=== PATIENT | female | born 1955 | race Caucasian/White ===

== ENCOUNTER 2016-09-09 23:17 | Inpatient (IN) ==
[2016-09-09] MEDS: INSULIN REGULAR DRIP 100 ML IV SCH (23:25)
[2016-09-09] MEDS ORDERED: METOCLOPRAMIDE 10 MG/2 ML VIAL IV STA (23:34)
[2016-09-09] MEDS ORDERED: SODIUM CHLORIDE 0.9% 2,000 ML IV STA (23:34)
[2016-09-09] MEDS ORDERED: LEVOFLOXACIN INJ 750 MG in PREMIX 1 EACH IV STA (23:34)
[2016-09-09] MEDS ORDERED: ONDANSETRON 4 MG/2 ML VIAL IV STA (23:34)
[2016-09-09] MEDS ORDERED: INSULIN REGULAR 100 UNIT/ML SUBCUT STA (23:36)
[2016-09-09] MEDS ORDERED: INSULIN REGULAR 100 UNIT/ML IV STA (23:36)
[2016-09-09] MEDS ORDERED: PANTOPRAZOLE 40 MG VIAL IV STA (23:36)
--- NOTE | 2016-09-09 23:40 | Emergency Department Note ---
Arrival - Arrival Chief Complaint: Nausea/Vomiting/Diarrhea Stated Complaint: n/v ED Nursing Triage Note: pt went to clinic yesterday for n/v and sent home. went back today and was sent to er and found glucose to be 780 and pylonephritis. gave rocephin and pt had reaction with rash and itching. insulin infusion going and sugar still 730 right before transfer to here. Mode of Arrival: Stretcher Limitations: No Limitations Source: Patient Time Seen by Provider: 09/09/16 23:34 - History of Present Illness HPI Narrative: This 61-year-old white female presents on transfer from [facility] with an elevated blood sugar and cystitis. This patient reports a history of 3 days of nausea and vomiting with inability to keep anything down. During the same time frame she has had problems with cystitis for which she was given Cipro but has been unable to keep it down because of nausea and vomiting. She presented to [facility] earlier with these symptoms where she was found to have an active bladder infection as well as a skyrocketing blood sugar over 700. The patient denies chills, fever, cough, chest pain, or diarrhea. Currently she appears stable and in no acute medical distress. Onset (ago): day(s) (it should presents 3 days post-onset of symptoms) Consistency: constant Date of Last Menstrual Period: pm Allergies/Adverse Reactions: Allergies Allergy/AdvReac Type Severity Reaction Status Date / Time ceftriaxone [From Rocephin] Allergy RASH Verified 09/09/16 23:23 Hydromorphone [From Dilaudid] AdvReac Severe Vomiting Verified 01/31/15 16:30 morphine AdvReac Severe Vomiting Verified 01/31/15 16:30 Home Medications: Home Medications Medication Instructions Recorded Confirmed Type Atorvastatin [Lipitor] 40 mg PO DAILY 01/31/15 09/10/16 History Celecoxib [Celebrex] 200 mg PO DAILY 01/31/15 09/10/16 History Duloxetine HCl [Duloxetine] 30 mg PO DAILY 01/31/15 09/10/16 History Esomeprazole Magnesium [Nexium] 40 mg PO DAILY 01/31/15 09/10/16 History Flecainide Acetate 100 mg PO BID 01/31/15 09/10/16 History Furosemide Tab [Lasix Tab] 80 mg PO BID DIURETIC 01/31/15 09/10/16 History Gabapentin Cap/Tab [Neurontin 100 mg PO BID 01/31/15 09/10/16 History Cap/Tab] Metoprolol Succinate 100 mg PO BID 01/31/15 09/10/16 History Montelukast Sodium 10 mg PO BEDTIME 01/31/15 09/10/16 History Perindopril Erbumine [Aceon] 4 mg PO DAILY 01/31/15 09/10/16 History Warfarin Sodium 4 mg PO DIRECTED 01/31/15 09/10/16 History Warfarin [Coumadin] 5 mg PO QOTHER DAY 01/31/15 09/10/16 History Review of System - Review of System 12 point system: reviewed and no additional remarkable complaints except as stated - Review of System Constitutional: Present: as per HPI Respiratory: Present: as per HPI Cardiovascular: Present: as per HPI Endocrine: Present: as per HPI Medical,Surgical,& Family Hx - Medical History Cardio: History of: Cardiovascular Problems (A FIB) Endocrine: History of: Diabetes Mellitus (IDDM) Rheumatology: History of;: Gout - Social History Smoking Status: Unknown if ever smoked Frequency of Alcohol Use: None Type of Drug Use: None Exam Physical Examination: GENERAL: Obese white female iin no acute distress. HEENT: Normocephalic. No trauma. Moist mucous membranes. EOMI. PERRLA. ENT clear NECK: Supple. No adenopathy. CARDIAC: Regular. No murmurs. Heart rate 97 CHEST: Clear to auscultation. No respiratory distress. O2 sat 94% ABDOMEN: Soft. Nontender. Hyperactive bowel sounds. EXTREMITIES: No trauma. Normal ROM. No pedal edema. SKIN: No diaphoresis. No rash. NEURO: Alert. Oriented 3. Motor, sensory, vibratory intact. No focal deficits. Vital Signs: Vital Signs Temperature 97.6 F 09/09/16 23:17 Pulse Rate 97 H 09/09/16 23:17 Respiratory Rate 19 09/09/16 23:17 Blood Pressure 101/55 09/09/16 23:17 O2 Sat by Pulse Oximetry 94 L 09/09/16 23:17 Course - Reevaluation(s) Reevaluation #1: Patient was expectant of admission. - Consultations Consultation #1: Discussed with Dr. Ceja, hospitalist, who will admit for further evaluation treatment. Results - Labs CBC & BMP: 09/09/16 23:34 02/02/17 23:34 Labs: Lab per [facility] reveals a glucose of 784, temp 0.35 with a PO2 of 59, white count of 11,300, hematocrit 43.5, sodium 131, potassium 5.1, CO2 25, creatinine 1.6, BUN 24 and lipase 99 I have reviewed the laboratory from here and noted the persistently elevated glucose as well as a bump in troponin. - Impressions EKG: Sinus rhythm at 86 with normal [place] interval and QRS duration. Peak T's noted. No acute injury pattern noted. - Diagnostic Findings Procedure: Abdominal x-ray: image reviewed by me, report reviewed by me (her [facility] nonspecific gas and feces pattern) Disposition Clinical Impression: hyperglycemia, cystitis, abnormal cardiac enzymes Case discussed with: patient, patient's family Disposition: Still a Patient Condition: Guarded Time of Disposition: 00:26
[2016-09-09] MEDS ORDERED: ONDANSETRON 4 MG/2 ML VIAL ONE (23:47)
[2016-09-09] MEDS ORDERED: PANTOPRAZOLE 40 MG VIAL IV ONE (23:47)
[2016-09-09] MEDS ORDERED: METOCLOPRAMIDE 10 MG/2 ML VIAL ONE (23:47)
[2016-09-09] MEDS ORDERED: INSULIN REGULAR 100 UNIT/ML ONE (23:49)
[2016-09-09] MEDS ORDERED: LEVOFLOXACIN INJ 150 ML IV ONE (23:49)
[2016-09-09 23:50] LABS: Basophils % 0.4 % (0.0-0.8); Eosinophils % 0.1 % (0.00-10.9); Hematocrit 39.4 VOL% (35.7-47.0); Immature Granulocytes % 0.4 %; Immature Granulocytes Absolute 0.04 #; Lymphocytes # 0.6 10*3/uL (1.4-4.0); Lymphocytes % 5.5 % (21.3-54.2); Mean Corpuscular Hemoglobin 30 PG (27-34); Mean Corpuscular Volume 91.2 FL (87-102); Mean Platelet Volume 11.5 FL (9.6-12.0); Monocytes # 0.8 10*3/uL (0.11-0.8); Monocytes % 7.4 % (1.7-12.7); Neutrophils # 9.5 10*3/uL (1.4-7.4); Neutrophils % 86.2 % (38.7-73.9); Platelet Count 208 T/CUMM (130-400); Red Blood Count 4.32 MC/CUMM (3.8-5.5); Red Cell Distribution Width 13.2 % (9.3-17.3)
[2016-09-10 00:11] LABS: Alanine Aminotransferase 24 U/L (13-56); Albumin 3.2 G/DL (3.4-5.0); Alkaline Phosphatase 104 U/L (45-117); Amylase 20 U/L (25-115); Aspartate Amino Transferase 27 U/L (0-37); Blood Urea Nitrogen 27 MG/DL (7-18); Calcium 8.1 MG/DL (8.5-10.1); Osmolality,Calculated 306.4 MOS/KG (273-304); Potassium 3.9 MMOL/L (3.5-5.1); Sodium 140 MMOL/L (136-145); Total Protein 5.9 G/DL (6.4-8.3)
[2016-09-10 00:12] LABS: Troponin I Only 0.439 NG/ML (0.00-0.045)
[2016-09-10 00:13] LABS: Glucose 519 MG/DL (74-106)
[2016-09-10] MEDS ORDERED: INSULIN REGULAR DRIP 100 ML IV ONE ×2 (00:34→00:48)
--- NOTE | 2016-09-10 01:19 | Hospitalist History & Physical ---
Assessment and Plan (1) Gastroenteritis Status: Acute Current Visit: Yes (2) Cystitis Status: Acute Current Visit: Yes (3) History of atrial fibrillation Status: Acute Current Visit: Yes (4) History of gout Status: Acute Assessment and plan: I plan for this patient currently #1 admit the patient for an insulin infusion #2 general 100 generous hydration #3 serial BMPs to ensure that she doesn't go into DKA #4 IV antibiotics #5 home meds as appropriate plan #6 repeat cardiac enzymes 6 hours #7 hold patient's insulin pump for now Current Visit: Yes (5) Hyperglycemia Status: Acute Current Visit: Yes History of Present Illness Chief complaint: Nausea vomiting diarrhea History of present illness: Ms. Mann is a 61 year old female with past medical history significant for diabetes atrial fibrillation and gout is been d dealing with nausea vomiting diarrhea times several days. Patient is a patient of Dr. Steele. Apparently her symptoms started Tuesday. They've been waxing and waning. At one point Dr. barbour and put her in the hospital when her sodium was 122. She did not want to go. She's been dealing with issues of cystitis she was given's Cipro but unable to keep anything down because of the nausea and vomiting. Tonight she presented with krishan with her symptoms returning again and her sugar was over 700. She was given some IV Rocephin at the outside facility and she had allergic reaction to it. She's currently on insulin infusion and I was consulted to admit her. Home Medications Medication Instructions Recorded Confirmed Type Atorvastatin [Lipitor] 40 mg PO DAILY 01/31/15 09/10/16 History Celecoxib [Celebrex] 200 mg PO DAILY 01/31/15 09/10/16 History Duloxetine HCl [Duloxetine] 30 mg PO DAILY 01/31/15 09/10/16 History Esomeprazole Magnesium [Nexium] 40 mg PO DAILY 01/31/15 09/10/16 History Flecainide Acetate 100 mg PO BID 01/31/15 09/10/16 History Furosemide Tab [Lasix Tab] 80 mg PO BID DIURETIC 01/31/15 09/10/16 History Gabapentin Cap/Tab [Neurontin 100 mg PO BID 01/31/15 09/10/16 History Cap/Tab] Metoprolol Succinate 100 mg PO BID 01/31/15 09/10/16 History Montelukast Sodium 10 mg PO BEDTIME 01/31/15 09/10/16 History Perindopril Erbumine [Aceon] 4 mg PO DAILY 01/31/15 09/10/16 History Warfarin Sodium 4 mg PO DIRECTED 01/31/15 09/10/16 History Warfarin [Coumadin] 5 mg PO QOTHER DAY 01/31/15 09/10/16 History Allergies Allergy/AdvReac Type Severity Reaction Status Date / Time ceftriaxone [From Rocephin] Allergy RASH Verified 09/09/16 23:23 Hydromorphone [From Dilaudid] AdvReac Severe Vomiting Verified 01/31/15 16:30 morphine AdvReac Severe Vomiting Verified 01/31/15 16:30 Medical,Surgical,& Family Hx - Medical History Cardio: History of: Cardiovascular Problems (A FIB) Endocrine: History of: Diabetes Mellitus (IDDM) Rheumatology: History of;: Gout - Surgical History Abdominal Surgeries: Surgical HX of: Cholecystectomy Reproductive Surgeries: Surgical HX of;: Hysterectomy Orthopedic Surgeries: Surgical HX of;: Orthopedic Surgery - Family History Family History: Reports;: Family Cancer, Family Heart Disease - Social History Smoking Status: Unknown if ever smoked Frequency of Alcohol Use: None Type of Drug Use: None 12 point system: reviewed and no additional remarkable complaints except as stated Exam - Constitutional Vitals: Period Temp Pulse Resp BP Sys/Ruiz Pulse Ox Last 24 Hr 97.6 F 97 19 101/55 94 General appearance: morbidly obese - Head Head exam: Present: normal inspection - Eye Eye exam: Present: EOMI Pupils: Present: VERITO - ENT ENT exam: Present: normal exam - Neck Neck exam: Present: normal inspection - Cardiovascular Cardiovascular exam: Present: regular rate and rhythm - GI/Abdominal GI/Abdominal exam: Present: normal bowel sounds - Extremities Exam Extremities exam: Present: normal inspection - Back Exam Back exam: Present: normal inspection - Neurological Exam Neurological exam: Present: alert, oriented X3 - Psychiatric Psychiatric exam: Present: normal affect, normal mood - Skin Skin exam: Present: normal color Results - Labs CBC & BMP: 09/09/16 23:34 09/09/16 23:34
[2016-09-10] MEDS ORDERED: ALBUTEROL 2.5 MG/3 ML NEB RESP TX PRN (01:30)
[2016-09-10] MEDS: SODIUM CHLORIDE 0.9% 1,000 ML IV SCH ×5 (02:54→20:00)
[2016-09-10 03:12] LABS: Apearance,Urine Slightly Hazy (Clear); Bacteria,Urine Occasional /HPF (Few); Bilirubin,Urine Negative (Negative); Blood, Urine Small mg/dL (Negative); Glucose,Urine (UA) >=500 mg/dL (Negative); Ketones,Urine 5 mg/dL (Negative); Mucus,Urine Occasional /LPF (Occasional); Nitrite,Urine Negative (Negative); Protein,Urine Negative; RBC,Urine 1 /HPF (0-4); Squamous Epithelial Cell,Urine Occasional /HPF (0-10); Urine Color Yellow (Yellow); Urine Specific Gravity 1.011 (1.001-1.035); Urine Urobilinogen < 2.0 EU/DL (0.2-1.0); WBC,Urine 27 /HPF (0-6)
[2016-09-10] MEDS: INSULIN REGULAR DRIP 100 ML IV SCH (04:30)
[2016-09-10] MEDS: ONDANSETRON 4 MG/2 ML VIAL IV PRN (04:54)
[2016-09-10 05:04] LABS: INR 2.8
[2016-09-10 05:05] LABS: PT Patient Result 32.1 SECS
[2016-09-10] MEDS: DEXTROSE 50% 25 GM/50 ML VIAL IV PRN (06:29)
[2016-09-10] MEDS ORDERED: DEXTROSE 50% 25 GM/50 ML VIAL IV ONE (06:32)
[2016-09-10 07:54] LABS: Calcium 7.6 MG/DL (8.5-10.1); Osmolality,Calculated 294.7 MOS/KG (273-304); Potassium 3.7 MMOL/L (3.5-5.1)
[2016-09-10] MEDS ORDERED: CELECOXIB 200 MG CAPSULE PO SCH (09:00)
[2016-09-10] MEDS ORDERED: ENOXAPARIN 40 MG/0.4 ML SYRINGE SUBCUT SCH (09:00)
[2016-09-10] MEDS: FLECAINIDE 100 MG TABLET PO SCH ×2 (09:47→20:53)
[2016-09-10] MEDS: FUROSEMIDE 80 MG TABLET PO SCH ×2 (09:48→16:58)
[2016-09-10] MEDS: DULoxetine 30 MG CAPSULE PO SCH (09:48)
[2016-09-10] MEDS: ATORVASTATIN 40 MG TABLET PO SCH (09:48)
[2016-09-10] MEDS: METOPROLOL SUCCINATE XL 100 MG TABLET PO SCH ×2 (09:48→20:54)
[2016-09-10] MEDS: GABAPENTIN 100 MG CAPSULE PO SCH ×2 (09:49→20:54)
--- NOTE | 2016-09-10 10:02 | EKG Report ---
Stationary ECG Study [facility] ER Test Date: 09/10/2016 12:00:17 AM Pat Name: MANOJ MANZANO Department: Room: 116 Gender: F Technical Specialist: : 1955 Requested by: Garry Dale Order Number: [id number] Reading MD: JEET ANDREW Intervals [place] Rate: 86 P: 101 AK: 201 QRS: 37 QRSD: 109 T: 36 QT: 404 QTc: 447 Interpretive Statements SINUS RHYTHM Electronically Signed On 09-10-16 17:56:09 [employer]AL SPRAY OPERATOR by JEET ANDREW [email or web address]
[2016-09-10] MEDS ORDERED: GLUCAGON 1 MG VIAL IM PRN (10:18)
[2016-09-10] MEDS ORDERED: INSULIN LISPRO 100 UNIT/ML SUBCUT SCH (11:30)
--- NOTE | 2016-09-10 12:38 | Hospitalist Progress Note ---
Assessment and Plan (1) Gastroenteritis Status: Acute Current Visit: Yes (2) Cystitis Status: Acute Current Visit: Yes (3) History of atrial fibrillation Status: Acute Current Visit: Yes (4) History of gout Status: Acute Assessment and plan: I plan for this patient currently #1 admit the patient for an insulin infusion #2 general 100 generous hydration #3 serial BMPs to ensure that she doesn't go into DKA #4 IV antibiotics #5 home meds as appropriate plan #6 repeat cardiac enzymes 6 hours #7 hold patient's insulin pump for now 09/10/16 and plan for this patient will be to transfer her upstairs continue with IV antibiotics and IV fluids. Accu-Cheks before meals and at bedtime and have the patient administer her own insulin through her pump. Her cardiac enzymes displayed a troponin of 1.35 but her CK was 75 Will draw another troponin to see which direction they're going she has no symptoms no signs of cardiac issues Current Visit: Yes (5) Hyperglycemia Status: Acute Current Visit: Yes Hospitalist: Subjective Interval history: Patient seems to be doing better. Her Accu-Cheks are in the 102 100 range. On insulin infusion has been stopped. Transfer her upstairs Exam - Constitutional Vitals: Period Temp Pulse Resp BP Sys/Ruiz Pulse Ox Last 24 Hr 97.6 F-99.4 F 72-97 12-29 89-123/41-75 91-98 General appearance: morbidly obese - Head Head exam: Present: normal inspection - Eye Eye exam: Present: EOMI Pupils: Present: VERITO - ENT ENT exam: Present: normal exam - Neck Neck exam: Present: normal inspection - Respiratory Respiratory exam: Present: clear to auscultation bilaterally - Cardiovascular Cardiovascular exam: Present: regular rate and rhythm - GI/Abdominal GI/Abdominal exam: Present: normal bowel sounds - Extremities Exam Extremities exam: Present: normal inspection - Back Exam Back exam: Present: normal inspection - Neurological Exam Neurological exam: Present: alert - Psychiatric Psychiatric exam: Present: normal affect Results - Labs CBC & BMP: 09/09/16 23:34 09/10/16 04:38
[2016-09-10] MEDS ORDERED: INSULIN LISPRO 100 UNIT/ML SUBCUT ONE (13:00)
[2016-09-10] MEDS: ACETAMINOPHEN 325 MG TABLET PO PRN (13:15)
[2016-09-10] MEDS: INSULIN REGULAR 100 UNIT/ML SUBCUT SCH ×2 (16:30→21:00)
[2016-09-10 16:33] LABS: Troponin I Only 0.982 NG/ML (0.00-0.045)
[2016-09-10] MEDS: LEVOFLOXACIN INJ 750 MG in PREMIX 1 EACH IV SCH (20:54)
[2016-09-10] MEDS: MONTELUKAST 10 MG TABLET PO SCH (20:54)
[2016-09-10] MEDS: PANTOPRAZOLE 40 MG VIAL IV SCH (21:34)
[2016-09-11 04:20] LABS: Calcium 7.9 MG/DL (8.5-10.1); Osmolality,Calculated 299.4 MOS/KG (273-304); Potassium 4.9 MMOL/L (3.5-5.1)
[2016-09-11 04:26] LABS: INR 3.5
[2016-09-11] MEDS: SODIUM CHLORIDE 0.9% 1,000 ML IV SCH ×3 (05:28→22:05)
[2016-09-11] MEDS: ATORVASTATIN 40 MG TABLET PO SCH (08:50)
[2016-09-11] MEDS: FUROSEMIDE 80 MG TABLET PO SCH ×2 (08:50→16:25)
[2016-09-11] MEDS: GABAPENTIN 100 MG CAPSULE PO SCH ×2 (08:50→20:56)
[2016-09-11] MEDS: INSULIN REGULAR 100 UNIT/ML SUBCUT SCH ×4 (08:50→21:50)
[2016-09-11] MEDS: METOPROLOL SUCCINATE XL 100 MG TABLET PO SCH ×2 (08:50→20:56)
[2016-09-11] MEDS: DULoxetine 30 MG CAPSULE PO SCH (08:50)
[2016-09-11] MEDS: FLECAINIDE 100 MG TABLET PO SCH ×2 (08:51→22:05)
[2016-09-11] MEDS ORDERED: PERINDOPRIL ERBUMINE 4 MG PO SCH (09:00)
[2016-09-11] MEDS: ONDANSETRON 4 MG/2 ML VIAL IV PRN (11:40)
--- NOTE | 2016-09-11 14:52 | Hospitalist Progress Note ---
Assessment and Plan (1) Acute cystitis with positive culture Status: Acute Current Visit: Yes (2) Insulin dependent diabetes mellitus Status: Acute Current Visit: Yes (3) Elevated troponin Status: Acute Current Visit: Yes (4) Diarrhea Status: Resolved Current Visit: Yes (5) Gastroenteritis Status: Acute Assessment and plan: Plan: 09/11: Continue supportive care, advance diet as tolerated. Cardiology consult in progress. She has no chest pain at this time, troponin is trending down, one could consider outpatient stress test however I'll defer this decision to cardiology. Blood sugar is much better controlled. Review of her transferring hospital records she had a greater than 100,000 colony count of gram-negative bacilli, she is currently growing out gram-negative rods, we are awaiting speciation. Continue antibiotics for now. Current Visit: Yes Hospitalist: Subjective Interval history: Ms. Mann is currently tolerating by mouth intake. She has not had any recurrence of diarrhea. Of note she has some epigastric pain prior to admission , also had mildly elevated troponin, no ST elevations on EKG. I have asked cardiology to evaluate her given her risk factors for coronary artery disease. Exam - Constitutional Vitals: Period Temp Pulse Resp BP Sys/Ruiz Pulse Ox Last 24 Hr 97.4 F-98.8 F 62-78 17-20 97-147/52-71 92-95 Exam: EXAM: CONSTITUTIONAL: non toxic, NAD HEENT: NC, AT, OP benign, VERITO, EOMI CV: RRR no m/g/r RESP: clear B/L, no w/r/r GI: abd soft, minimal suprapubic tenderness, ND, +bowel sounds INTEGUMENTARY: no lesions or rash EXTREMITIES: no c/c/e NEURO: no focal deficits PSYCH: unremarkable, A/O x3 Results - Labs CBC & BMP: 09/09/16 23:34 09/11/16 02:55 Lab Results: I have reviewed the past 24 hour labs
--- NOTE | 2016-09-11 16:02 | Cardiology Consult Note ---
Assessment and Plan - Time spent with patient Time spent with patient: Greater than 30 minutes (Chart review examination orders and history and physical) (1) Atypical chest pain Status: Acute Assessment and plan: Patient has point risk factors this sounds atypical she has mild elevation of troponin she had a creatinine at 1.9 on admission is down to 1.2. I would recommend that the patient be treated conservatively and medically for now continue her medical therapy and let her follow-up with Dr. Drummond as an outpatient. She has had no exertional chest component she has no diagnostic EKG changes and she presents with nausea vomiting and diarrhea with markedly elevated blood sugars. She has had a normal stress test within the last 1 year and recommend based on her body habitus that if further testing is needed she would likely need a left heart catheterization. Current Visit: Yes (2) Diabetes mellitus type 2 in obese Status: Chronic Current Visit: Yes (3) Dyslipidemia Status: Chronic Current Visit: Yes (4) Obstructive sleep apnea Status: Chronic Current Visit: Yes (5) Morbid obesity with BMI of 40.0-44.9, adult Status: Chronic Current Visit: Yes (6) Chronic renal insufficiency, stage I Status: Chronic Current Visit: Yes (7) Gastroenteritis Status: Acute Current Visit: Yes (8) History of atrial fibrillation Status: Chronic Current Visit: Yes (9) Non-compliant behavior Status: Acute Current Visit: Yes History of Present Illness - Data of Consult Patient: known to practice within the last 3 years Consult date: 09/11/16 Primary care physician: Ruben Maldonado - Consult Narrative Reason for consult: Abnormal troponin History of present illness: 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 She is admitted with illness that started on Tuesday with nausea vomiting and diarrhea. Diarrhea was the initial presentation this resolved and she had persistent nausea and vomiting she self felt very very poorly she saw her primary care physician who wanted her to come to the hospital but she stated that she did not feel like it and she refused she ultimately came to the emergency room found to have hyponatremia she was admitted to the hospitalist service for severe uncontrolled diabetes. She had serial cardiac biomarkers that show a very slight increase in troponin with a rise and fall. The patient had some chest discomfort that she related to her nausea and vomiting. She not had any chest pain with exertion prior to this she states she can walk up and down the halls a [place] all the time without difficulty. I discussed with Dr. Rahman earlier concerning her troponin elevation. The patient states the pain was in the middle of her chest and radiated across into the shoulders. This was during the time that she was nauseated but he came after her emesis. She had a stress test within the last year by Dr. Drummond her primary cath lab radiological technologist that was normal. She has a history of atrial fibrillation and has been cardioverted on flecainide and metoprolol. She has obstructive sleep apnea but does not sleep with her CPAP. We are asked to see for mild troponin elevation rise and fall. CC: Loki Dumont MD - Home Medications and Allergies Home Medications: Home Medications Medication Instructions Recorded Confirmed Type Atorvastatin [Lipitor] 40 mg PO DAILY 01/31/15 09/10/16 History Celecoxib [Celebrex] 200 mg PO DAILY 01/31/15 09/10/16 History Duloxetine HCl [Duloxetine] 30 mg PO DAILY 01/31/15 09/10/16 History Esomeprazole Magnesium [Nexium] 40 mg PO DAILY 01/31/15 09/10/16 History Flecainide Acetate 100 mg PO BID 01/31/15 09/10/16 History Furosemide Tab [Lasix Tab] 80 mg PO BID DIURETIC 01/31/15 09/10/16 History Gabapentin Cap/Tab [Neurontin 100 mg PO BID 01/31/15 09/10/16 History Cap/Tab] Metoprolol Succinate 100 mg PO BID 01/31/15 09/10/16 History Montelukast Sodium 10 mg PO BEDTIME 01/31/15 09/10/16 History Perindopril Erbumine [Aceon] 4 mg PO DAILY 01/31/15 09/10/16 History Warfarin Sodium 4 mg PO DIRECTED 01/31/15 09/10/16 History Warfarin [Coumadin] 5 mg PO QOTHER DAY 01/31/15 09/10/16 History Insulin Aspart [NovoLOG] 300 unit SUBCUT ONCE 09/10/16 09/10/16 History Allergies/Adverse Reactions: Allergies Allergy/AdvReac Type Severity Reaction Status Date / Time ceftriaxone [From Rocephin] Allergy RASH Verified 09/09/16 23:23 Hydromorphone [From Dilaudid] AdvReac Severe Vomiting Verified 01/31/15 16:30 morphine AdvReac Severe Vomiting Verified 01/31/15 16:30 - Constitutional Constitutional: Present: daytime sleepiness, stops breathing during sleep, weakness, weight loss. Absent: anorexia, chills, night sweats - EENT Eyes: Present: blurry vision Ears: Absent: decreased hearing - Cardiovascular Cardiovascular: Present: chest pain at rest, edema (At the end of a long day at work). Absent: chest pain with activity, dyspnea, dyspnea on exertion - Respiratory Respiratory: Absent: cough, hemoptysis, dyspnea on exertion - Gastrointestinal Gastrointestinal: Present: bloating, diarrhea, nausea, vomiting. Absent: abdominal pain - Genitourinary Genitourinary: Absent: difficulty urinating, menorrhagia - Musculoskeletal Musculoskeletal: Present: arthralgias - Neurological Neurological: Absent: abnormal gait, disequilibrium - Psychiatric Psychiatric: Absent: auditory hallucinations, depression - Endocrine Endocrine: Absent: cold intolerance, heat intolerance - Hematologic/Lymphatic Hematologic/Lymphatic: Absent: easy bleeding, easy bruising Medical,Surgical,& Family Hx - Medical History Cardio: History of: Cardiovascular Problems (A FIB) Neurology: No history of: Brain Aneurysm, Cerebrovascular Accident, Cerebral Palsy Endocrine: History of: Diabetes Mellitus (IDDM) Rheumatology: History of;: Gout Respiratory: History of: Obstructive Sleep Apnea Genitourinary: History of: Recurring Urinary Tract Infections - Surgical History Cardiac Surgeries: Sugical HX of: Cardiac Catheterization (Greater than 10 years ago) Neurologic Surgeries: Patient denies: Brain Aneurysm Abdominal Surgeries: Surgical HX of: Cholecystectomy Reproductive Surgeries: Surgical HX of;: Hysterectomy Orthopedic Surgeries: Surgical HX of;: Orthopedic Surgery (Rotator cuff repair) - Family History Family History: Reports;: Family Cancer, Family Heart Disease - Social History Smoking Status: Never smoker Frequency of Alcohol Use: None Type of Drug Use: None Marital Status: Lives With:: Spouse Functional capacity: independent ambulation Physical Examination Vital Signs Temp Pulse Resp BP Pulse Ox 97.6 F 97 H 19 101/55 94 L 09/09/16 23:17 09/09/16 23:17 09/09/16 23:17 09/09/16 23:17 09/09/16 23:17 General: Present: Other (Morbidly obese) HEENT: Absent: Pallor Neck: Present: Supple Neck Cardiac: Present: Reg Rate and Rhythm, S1/S2 (Tones are quite difficult to appreciate PMI), S4 Lungs: Present: Normal Exam Neuro: Present: Cranial Nerve 2-12 Intact Abdomen: Present: Soft, Active Bowel Sounds Skin: Present: Clear. Absent: Rash Musculoskeletal: Present: No Fluid Collection, No Pain Gait: Present: Normal Gait Extremities: Present: Normal Gait. Absent: Edema Result/EKG - Labs CBC & BMP: 09/09/16 23:34 09/11/16 02:55 Labs: Laboratory Results - last 24 hr 09/10/16 09/10/16 09/10/16 15:27 15:46 19:53 INR PT Patient/Control Mix Sodium Potassium Chloride Carbon Dioxide Anion Gap BUN Creatinine GFR Calculation BUN/Creatinine Ratio Glucose POC Glucose 190 H 101 Calculated Osmolality Calcium Total Creatine Kinase 74 CK-MB (CK-2) 4.3 H Troponin I 0.982 H D 09/11/16 09/11/16 09/11/16 02:55 02:55 07:57 INR 3.5 PT Patient/Control Mix 40.0 D Sodium 147 H Potassium 4.9 Chloride 110 H Carbon Dioxide 27 Anion Gap 14.9 BUN 18 Creatinine 1.20 H GFR Calculation 67 BUN/Creatinine Ratio 15.00 Glucose 203 H POC Glucose 145 H Calculated Osmolality 299.4 Calcium 7.9 L Total Creatine Kinase CK-MB (CK-2) Troponin I 09/11/16 11:29 INR PT Patient/Control Mix Sodium Potassium Chloride Carbon Dioxide Anion Gap BUN Creatinine GFR Calculation BUN/Creatinine Ratio Glucose POC Glucose 189 H Calculated Osmolality Calcium Total Creatine Kinase CK-MB (CK-2) Troponin I - EKG EKG results: interpreted by me (Nonspecific ST segment changes multiple ECGs all without change)
[2016-09-11] MEDS: ACETAMINOPHEN 325 MG TABLET PO PRN (16:25)
[2016-09-11] MEDS ORDERED: WARFARIN 4 MG TABLET PO SCH (18:00)
[2016-09-11] MEDS: MONTELUKAST 10 MG TABLET PO SCH (20:57)
[2016-09-11] MEDS: PANTOPRAZOLE 40 MG VIAL IV SCH (20:57)
[2016-09-11] MEDS: LEVOFLOXACIN INJ 750 MG in PREMIX 1 EACH IV SCH (20:57)
[2016-09-12 04:03] LABS: Basophils % 0.5 % (0.0-0.8); Eosinophils # 0.4 10*3/uL (0.0-0.87); Eosinophils % 5.5 % (0.00-10.9); Hematocrit 40.9 VOL% (35.7-47.0); Immature Granulocytes % 0.4 %; Immature Granulocytes Absolute 0.03 #; Lymphocytes # 1.1 10*3/uL (1.4-4.0); Lymphocytes % 14.2 % (21.3-54.2); Mean Corpuscular HGB Conc 31.8 GM/DL (32-36); Mean Corpuscular Hemoglobin 30 PG (27-34); Mean Corpuscular Volume 92.7 FL (87-102); Mean Platelet Volume 12.4 FL (9.6-12.0); Monocytes # 0.6 10*3/uL (0.11-0.8); Monocytes % 7.7 % (1.7-12.7); Neutrophils # 5.5 10*3/uL (1.4-7.4); Neutrophils % 71.7 % (38.7-73.9); Platelet Count 175 T/CUMM (130-400); Red Blood Count 4.41 MC/CUMM (3.8-5.5); Red Cell Distribution Width 13.7 % (9.3-17.3); White Blood Count 7.6 T/CUMM (4-12)
[2016-09-12 04:23] LABS: Calcium 8.1 MG/DL (8.5-10.1); Osmolality,Calculated 296.4 MOS/KG (273-304); Potassium 3.9 MMOL/L (3.5-5.1)
[2016-09-12 04:54] LABS: PT Patient Result 33.7 SECS
[2016-09-12] MEDS: SODIUM CHLORIDE 0.9% 1,000 ML IV SCH ×2 (07:39→14:44)
[2016-09-12] MEDS: FUROSEMIDE 80 MG TABLET PO SCH ×2 (09:01→15:32)
[2016-09-12] MEDS: INSULIN REGULAR 100 UNIT/ML SUBCUT SCH ×4 (09:01→21:11)
[2016-09-12] MEDS: FLECAINIDE 100 MG TABLET PO SCH ×2 (09:01→21:12)
[2016-09-12] MEDS: METOPROLOL SUCCINATE XL 100 MG TABLET PO SCH ×2 (09:01→21:12)
[2016-09-12] MEDS: DULoxetine 30 MG CAPSULE PO SCH (09:01)
[2016-09-12] MEDS: GABAPENTIN 100 MG CAPSULE PO SCH ×2 (09:01→21:12)
[2016-09-12] MEDS: ATORVASTATIN 40 MG TABLET PO SCH (09:01)
--- NOTE | 2016-09-12 12:45 | Cardiology Progress Note ---
Assessment and Plan (1) Atypical chest pain Status: Acute Assessment and plan: This appears to be related to her esophagus and eating solids and solid dysphasia. Nothing further to add we will sign off. Please have the patient see Dr. williamson at follow-up. Current Visit: Yes (2) Diabetes mellitus type 2 in obese Status: Chronic Current Visit: Yes (3) Dyslipidemia Status: Chronic Current Visit: Yes (4) Obstructive sleep apnea Status: Chronic Current Visit: Yes (5) Morbid obesity with BMI of 40.0-44.9, adult Status: Chronic Current Visit: Yes (6) Chronic renal insufficiency, stage I Status: Chronic Current Visit: Yes (7) Gastroenteritis Status: Acute Current Visit: Yes (8) History of atrial fibrillation Status: Chronic Current Visit: Yes (9) Non-compliant behavior Status: Acute Current Visit: Yes Cardiology - PN: Subj Interval history: Ms. Mann has not experienced any cardiac type chest pain she states that she has dysphagia to chicken and pork and states that she thinks she is having trouble swallowing this is created chest discomfort. Exam (Progress Note) - Constitutional Vitals: Period Temp Pulse Resp BP Sys/Ruiz Pulse Ox Last 24 Hr 97.7 F-98.8 F 54-63 18-20 105-135/51-87 62-98 General appearance: morbidly obese - Neck Neck exam: Present: normal inspection - Respiratory Respiratory exam: Present: clear to auscultation bilaterally - Cardiovascular Cardiovascular exam: Present: regular rate and rhythm (No gallop heard tones distant) - GI/Abdominal GI/Abdominal exam: Present: normal bowel sounds - Extremities Exam Extremities exam: Absent: edema - Neurological Exam Neurological exam: Present: alert, oriented X3 - Psychiatric Psychiatric exam: Present: normal affect, normal mood Result/EKG - Labs CBC & BMP: 09/12/16 03:09 09/12/16 03:09 Labs: Laboratory Results - last 24 hr 09/11/16 09/11/16 09/12/16 16:18 21:02 01:41 WBC RBC Hgb Hct MCV MCH MCHC RDW Plt Count MPV Neut % (Auto) Lymph % (Auto) [place] % (Auto) Eos % (Auto) Baso % (Auto) Neut # (Auto) Lymph # (Auto) [place] # (Auto) Eos # (Auto) Baso # (Auto) Immature Gran % Nucleated RBC % Immature Gran # Nucleated RBCs # INR PT Patient/Control Mix Sodium Potassium Chloride Carbon Dioxide Anion Gap BUN Creatinine GFR Calculation BUN/Creatinine Ratio Glucose POC Glucose 182 H 192 H 35 L* Calculated Osmolality Calcium 09/12/16 09/12/16 09/12/16 02:03 03:09 03:09 WBC 7.6 D RBC 4.41 Hgb 13.0 Hct 40.9 MCV 92.7 MCH 30 MCHC 31.8 L RDW 13.7 Plt Count 175 MPV 12.4 H Neut % (Auto) 71.7 Lymph % (Auto) 14.2 L [place] % (Auto) 7.7 Eos % (Auto) 5.5 Baso % (Auto) 0.5 Neut # (Auto) 5.5 Lymph # (Auto) 1.1 L [place] # (Auto) 0.6 Eos # (Auto) 0.4 Baso # (Auto) 0.0 Immature Gran % 0.4 Nucleated RBC % 0.0 Immature Gran # 0.03 Nucleated RBCs # 0.00 INR 3.0 PT Patient/Control Mix 33.7 Sodium Potassium Chloride Carbon Dioxide Anion Gap BUN Creatinine GFR Calculation BUN/Creatinine Ratio Glucose POC Glucose 89 Calculated Osmolality Calcium 09/12/16 09/12/16 03:09 08:16 WBC RBC Hgb Hct MCV MCH MCHC RDW Plt Count MPV Neut % (Auto) Lymph % (Auto) [place] % (Auto) Eos % (Auto) Baso % (Auto) Neut # (Auto) Lymph # (Auto) [place] # (Auto) Eos # (Auto) Baso # (Auto) Immature Gran % Nucleated RBC % Immature Gran # Nucleated RBCs # INR PT Patient/Control Mix Sodium 147 H Potassium 3.9 Chloride 109 H Carbon Dioxide 25 Anion Gap 16.9 H BUN 17 Creatinine 1.00 GFR Calculation 85 BUN/Creatinine Ratio 17.00 Glucose 156 H POC Glucose 184 H Calculated Osmolality 296.4 Calcium 8.1 L
--- NOTE | 2016-09-12 15:44 | Hospitalist Progress Note ---
Assessment and Plan (1) Acute cystitis with positive culture Status: Acute Current Visit: Yes (2) Insulin dependent diabetes mellitus Status: Acute Current Visit: Yes (3) Elevated troponin Status: Acute Current Visit: Yes (4) Diarrhea Status: Resolved Current Visit: Yes (5) Dysphagia Status: Acute Current Visit: Yes (6) Gastroenteritis Status: Resolved Assessment and plan: Plan: 09/11: Continue supportive care, advance diet as tolerated. Cardiology consult in progress. She has no chest pain at this time, troponin is trending down, one could consider outpatient stress test however I'll defer this decision to cardiology. Blood sugar is much better controlled. Review of her transferring hospital records she had a greater than 100,000 colony count of gram-negative bacilli, she is currently growing out gram-negative rods, we are awaiting speciation. Continue antibiotics for now. 09/12: Change antibiotics to Doxy given sensitivities. We'll consult GI for EGD given her dysphagia to solids. Otherwise continue current care. Current Visit: Yes Hospitalist: Subjective Interval history: Ms. Mann today relates history of dysphagia to solids, "getting stuck." She' s never been scoped to her knowledge. Her urine culture results come back with an ESBL Escherichia coli resistant to her current antibiotics. We'll switch her to doxycycline. She is a little tearful today and feels like she is imposing. I reassured her, conversed with her and she is agreeable to changing her IV antibiotics and GI evaluation for endoscopy. Exam - Constitutional Vitals: Period Temp Pulse Resp BP Sys/Ruiz Pulse Ox Last 24 Hr 97.7 F-98.8 F 54-63 18-20 105-139/51-87 62-98 Exam: EXAM: CONSTITUTIONAL: non toxic, NAD HEENT: NC, AT, OP benign, VERITO, EOMI CV: RRR no m/g/r RESP: clear B/L, no w/r/r GI: abd soft, minimal suprapubic tenderness, ND, +bowel sounds INTEGUMENTARY: no lesions or rash EXTREMITIES: no c/c/e NEURO: no focal deficits PSYCH: unremarkable, A/O x3 Results - Labs CBC & BMP: 09/12/16 03:09 09/12/16 03:09 Lab Results: I have reviewed the past 24 hour labs
[2016-09-12] MEDS: DOXYCYCLINE HYCLATE INJ 100 MG in SODIUM CHLORIDE 0.9% 100 ML IV SCH (17:15)
[2016-09-12] MEDS ORDERED: DOXYCYCLINE HYCLATE 100 MG CAPSULE PO SCH (21:00)
[2016-09-12] MEDS: MONTELUKAST 10 MG TABLET PO SCH (21:12)
[2016-09-12] MEDS: PANTOPRAZOLE 40 MG VIAL IV SCH (21:33)
[2016-09-13] MEDS: DOXYCYCLINE HYCLATE INJ 100 MG in SODIUM CHLORIDE 0.9% 100 ML IV SCH ×2 (04:26→20:33)
[2016-09-13 06:45] LABS: INR 1.4; PT Patient Result 15.4 SECS
--- NOTE | 2016-09-13 10:53 | Physician Query Form ---
CLICK EDIT DOCUMENT TO SELECT QUERY ANSWER --> OK --> SIGN Loli Mackey RN Clinical [employer] Wall Installer W) [phone] (f) [phone] [email or web address] PROVIDERS: Make your selection(s) from the choices in EACH section by typing an "x" and enter comments in the comment section. Please use your independent medical judgment in providing your response. This request does not imply that any particular answer is desired or expected. CLINICAL INDICATORS: (Providers should not edit this section) Based on lab results of creatinine on admission of 1.90 with a GFR of 39 and decreased to 1.20. Pt. treated with IV fluids of Normal Saline. Clarify which of the following most accurately represents the patient's renal status: ( ) Acute kidney injury (non-traumatic) (x ) Acute renal failure due to dehydration associated ATN ( ) Acute renal failure with underlying Chronic Kidney Disease (CKD) - please provide stage below ( ) CKD - please provide stage below ( ) Other, please specify: ( ) Clinically unable to determine Chronic Kidney Disease Stages Source: National Kidney Disease Foundation ( ) Stage I (eGFR > or = 90) ( ) Stage II (eGFR 60 - 89) ( ) Stage III (eGFR 30 - 59) ( ) Stage IV (eGFR 15 - 29) ( ) Stage V (eGFR < 15 or dialysis) COMMENTS: Use of terms such as suspected, likely, or probable (associated with a specific diagnosis that is being evaluated, monitored, or treated as if it exists) are acceptable and can be restated in the discharge summary if not ruled out. MTDD
[2016-09-13] MEDS: INSULIN REGULAR 100 UNIT/ML SUBCUT SCH ×4 (11:09→21:27)
[2016-09-13] MEDS: ATORVASTATIN 40 MG TABLET PO SCH (12:00)
[2016-09-13] MEDS: DULoxetine 30 MG CAPSULE PO SCH (12:00)
[2016-09-13] MEDS: FUROSEMIDE 80 MG TABLET PO SCH ×2 (12:00→16:17)
[2016-09-13] MEDS: GABAPENTIN 100 MG CAPSULE PO SCH ×2 (12:01→20:33)
[2016-09-13] MEDS: METOPROLOL SUCCINATE XL 100 MG TABLET PO SCH ×2 (12:02→20:33)
[2016-09-13] MEDS: FLECAINIDE 100 MG TABLET PO SCH ×2 (12:10→20:33)
[2016-09-13] MEDS: ONDANSETRON 4 MG/2 ML VIAL IV PRN (12:12)
--- NOTE | 2016-09-13 14:55 | Hospitalist Progress Note ---
Assessment and Plan (1) Acute cystitis with positive culture Status: Acute Current Visit: Yes (2) Insulin dependent diabetes mellitus Status: Acute Current Visit: Yes (3) Elevated troponin Status: Acute Current Visit: Yes (4) Diarrhea Status: Resolved Current Visit: Yes (5) Dysphagia Status: Acute Current Visit: Yes (6) Chronic anticoagulation Status: Acute Current Visit: Yes (7) History of atrial fibrillation Status: Chronic Current Visit: Yes (8) Gastroenteritis Status: Resolved Assessment and plan: Plan: 09/11: Continue supportive care, advance diet as tolerated. Cardiology consult in progress. She has no chest pain at this time, troponin is trending down, one could consider outpatient stress test however I'll defer this decision to cardiology. Blood sugar is much better controlled. Review of her transferring hospital records she had a greater than 100,000 colony count of gram-negative bacilli, she is currently growing out gram-negative rods, we are awaiting speciation. Continue antibiotics for now. 09/12: Change antibiotics to Doxy given sensitivities. We'll consult GI for EGD given her dysphagia to solids. Otherwise continue current care. 09/13: Continue current antibiotics, symptoms are improving regarding her cystitis. Holding her Coumadin in anticipation of EGD expected tomorrow. INR today is 1.4 I believe this should not hold up EGD, defer to GI. We'll repeat PT/INR morning. Current Visit: Yes Hospitalist: Subjective Interval history: Ms Mann has far less abdominal cramping/bladder spasms today. No urinary dribbling since we switched ABX based on sensitivities. She's tolerating a soft diet, awaiting GI evaluation for EGD tomorrow for dysphagia. Exam - Constitutional Vitals: Period Temp Pulse Resp BP Sys/Ruiz Pulse Ox Last 24 Hr 98.0 F-98.9 F 56-65 16-63 109-127/54-79 91-97 Exam: EXAM: CONSTITUTIONAL: non toxic, NAD HEENT: NC, AT, OP benign, VERITO, EOMI CV: RRR no m/g/r RESP: clear B/L, no w/r/r GI: abd soft, nontender, ND, +bowel sounds INTEGUMENTARY: no lesions or rash EXTREMITIES: no c/c/e NEURO: no focal deficits PSYCH: unremarkable, A/O x3 Results - Labs CBC & BMP: 09/12/16 03:09 09/12/16 03:09 Lab Results: I have reviewed the past 24 hour labs
[2016-09-13] MEDS ORDERED: PHYTONADIONE 10 MG/1 ML AMP IV ONE (17:35)
--- NOTE | 2016-09-13 17:45 | Gastrointestinal Consult Note ---
Assessment and Plan (1) Dysphagia Status: Acute Assessment and plan: The patient does have difficulty with food making all the way down the esophagus and I suspect she may have an underlying stricture although esophagitis may also cause this as with spasm leading to look for evidence of eosinophilic esophagitis and reflux. She needs to be off of her Coumadin for this to occur and for an INR to be 1.3 or lower. She is close at this time and agree with stopping her Coumadin. We'll give a small dosage of vitamin K, and reexamined PT/INR tomorrow to see if this has improved. We will plan on doing a dilation depending on findings at endoscopy tomorrow. Current Visit: Yes (2) Epigastric pain Status: Acute Assessment and plan: This patient may have underlying gastritis versus gastroparesis present look for peptic ulcer disease especially given her exposure to Celebrex on a routine basis. Would like to rule out gastric cancer as well. The patient is not anemic I do note. Risks and benefits of the upper endoscopy were discussed with the patient and include but are not limited to: Bleeding, infection, perforation, cardiac and pulmonary compromise. The risk of perforation is higher with dilation and this was discussed with the patient. We'll increase her Protonix to twice daily in the interim or we await the procedure. Current Visit: Yes (3) Screening for colorectal cancer Status: Acute Assessment and plan: This patient will likely need routine colorectal cancer screening as an outpatient down the road some. She states that her last colonoscopy was done by Dr. Monaco approximately 7 years ago and will want to repeat this in the next 3 years or so, or symptoms of rectal bleeding occur. For the present time we do not need to address this further this admission. Further recommendations post upper endoscopy. Current Visit: Yes History of Present Illness Chief complaint: dysphagia with GERD/nausea/vomiting History of present illness: Ms. Mann is a 61 year old female who works as a registered nurse over the [employer] and has had nausea and vomiting with severe reflux over the last 2-3 years, this is recently developed dysphagia over the last 1 year which causes her to cut up her food into smaller bites and particularly is noticeable with cornbread and other solid meat products. This is found to ahead over the last 1 week with the patient developed a UTI which basically got worse and resulted in severe nausea and vomiting and blood sugar increase as well as receive her dysphagia. She presented to Dr. Maldonado's office for evaluation as an outpatient was sent over to [facility] [place] eventually for admission over blood sugars which were over 700. Her nausea and vomiting previously had been intractable but are now improved quite a bit. She does have a history of diarrhea as well for several days adding to the dehydration. She has now been on Cipro with Avastin improvement of her symptoms. Previously her white count had been as high as 11. She states that her blood sugars are usually controlled with a hematin globin A1c of about 8. She does have some moderate epigastric pain but favored this to the nausea and vomiting. She does have Celebrex listed as one of her home medications she does take warfarin on a regular basis because of underlying atrial fibrillation. He had a colonoscopy done by Dr. Jacinda SCHWARZ approximately 7 years ago for infectious colitis, but does not recall having been told she had any polyps at that time she has not had upper endoscopy. Food seems to get stuck at the base of her throat. She has had multiple occasions where she had to vomit to dislodge solids in her esophagus. Home Medications Medication Instructions Recorded Confirmed Type Atorvastatin [Lipitor] 40 mg PO DAILY 01/31/15 09/10/16 History Celecoxib [Celebrex] 200 mg PO DAILY 01/31/15 09/10/16 History Duloxetine HCl [Duloxetine] 30 mg PO DAILY 01/31/15 09/10/16 History Esomeprazole Magnesium [Nexium] 40 mg PO DAILY 01/31/15 09/10/16 History Flecainide Acetate 100 mg PO BID 01/31/15 09/10/16 History Furosemide Tab [Lasix Tab] 80 mg PO BID DIURETIC 01/31/15 09/10/16 History Gabapentin Cap/Tab [Neurontin 100 mg PO BID 01/31/15 09/10/16 History Cap/Tab] Metoprolol Succinate 100 mg PO BID 01/31/15 09/10/16 History Montelukast Sodium 10 mg PO BEDTIME 01/31/15 09/10/16 History Perindopril Erbumine [Aceon] 4 mg PO DAILY 01/31/15 09/10/16 History Warfarin Sodium 4 mg PO SUTUTHSA 01/31/15 09/13/16 History Warfarin [Coumadin] 5 mg PO MOWEFR 06/26/15 02/06/17 History Insulin Aspart [NovoLOG] 0 unit SUBCUT ONCE 09/10/16 09/13/16 History Allergies Allergy/AdvReac Type Severity Reaction Status Date / Time ceftriaxone [From Rocephin] Allergy RASH Verified 09/09/16 23:23 Hydromorphone [From Dilaudid] AdvReac Severe Vomiting Verified 01/31/15 16:30 morphine AdvReac Severe Vomiting Verified 01/31/15 16:30 Medical,Surgical,& Family Hx - Medical History Cardio: History of: Cardiovascular Problems (A FIB) Neurology: No history of: Brain Aneurysm, Cerebrovascular Accident, Cerebral Palsy Endocrine: History of: Diabetes Mellitus (IDDM) Rheumatology: History of;: Gout Respiratory: History of: Obstructive Sleep Apnea, Respiratory Problems Genitourinary: History of: Recurring Urinary Tract Infections - Surgical History Cardiac Surgeries: Sugical HX of: Cardiac Catheterization (Greater than 10 years ago) Neurologic Surgeries: Patient denies: Brain Aneurysm Abdominal Surgeries: Surgical HX of: Cholecystectomy Reproductive Surgeries: Surgical HX of;: Hysterectomy Orthopedic Surgeries: Surgical HX of;: Orthopedic Surgery (Rotator cuff repair) - Family History Family History: Reports;: Family Cancer, Family Heart Disease - Social History Smoking Status: Never smoker Frequency of Alcohol Use: None Type of Drug Use: None Review of systems: Constitutional: She does have some fever, chills, and also the patient admits to nausea, and vomiting Eyes: Denies dry eyes, and scleral icterus HENT: She does have some occasional headaches Cardiovascular: She is experiencing acute chest pain but no claudication Respiratory: Denies shortness of breath, wheezing, and difficulty breathing, denies cough Gastrointestinal: As noted in the HPI Genitourinary: Denies dysuria and hematuria Neurologic: Denies vision loss, and loss of sensation Musculoskeletal: Patient does have some joint swelling, joint stiffness, and muscular weakness Psychiatric: Denies depression and yoly symptoms Heme-Lymph: Denies easy bruising, lymph node enlargement or tenderness, night sweats, excessive bleeding Allergies-immunologic: Denies pruritus and rhinorrhea Exam - Constitutional Vitals: Period Temp Pulse Resp BP Sys/Ruiz Pulse Ox Last 24 Hr 98.0 F-98.9 F 56-65 16-63 110-127/53-71 91-97 General appearance: over weight Exam: Constitutional: Well-developed, well-nourished, alert, and in no acute distress Head and face: Head: Normocephalic atraumatic Eyes: Conjunctiva without injection, no gross scleral icterus, pupils equal and round bilaterally Ears: Intact to conversation in both ears Nose: External appearance is normal, nares patent Mouth: Oral mucous membranes moist the patient does have a prominent torus palantine but esophagus/hypopharynx with mild erythema, dentition noted to be without erosion with a few missing teeth Neck: Normal appearance, no masses or tenderness, trachea midline Thyroid: Gland midline and appropriate size for age Respiratory: Normal respiratory effort, clear to auscultation without wheezes, rhonchi or rales Cardiovascular: Regular rate and rhythm, normal S1, S2, the exam is without rubs, murmurs or gallops. Gastrointestinal: Mild tenderness to deep palpation in the epigastric region., normal active bowel sounds, tone normal without rigidity or guarding, no masses present, no hepatomegaly, no spleen tip felt. No rectal exam obtained. Lymphatic: Neck without adenopathy, axilla without lymphadenopathy present Musculoskeletal: Right and left lower extremities without evidence of edema Skin and subcutaneous tissue: No rashes or ulcerations noted, normal skin turgor, digits and nails without clubbing/cyanosis/deformities. Neurologic: The patient is grossly oriented to person place and time, cranial nerves show tongue movements are normal with normal tongue extrusion midline, light touch sensation is intact. Psychiatric: No hallucinations or delusions are present, does not appear depressed Results - Labs CBC & BMP: 09/12/16 03:09 09/12/16 03:09
[2016-09-13] MEDS ORDERED: WARFARIN 5 MG TABLET PO SCH (18:00)
[2016-09-13] MEDS: MONTELUKAST 10 MG TABLET PO SCH (20:33)
[2016-09-13] MEDS: PANTOPRAZOLE 40 MG VIAL IV SCH (20:34)
[2016-09-14] MEDS: DEXTROSE 50% 25 GM/50 ML VIAL IV PRN (04:43)
[2016-09-14 05:53] LABS: Calcium 8.5 MG/DL (8.5-10.1); Osmolality,Calculated 293.6 MOS/KG (273-304); Potassium 3.4 MMOL/L (3.5-5.1)
[2016-09-14 05:56] LABS: INR 1.2; PT Patient Result 12.4 SECS
[2016-09-14 05:57] LABS: INR 1.2; PT Patient Result 12.4 SECS; Partial Thromboplastin Time 29.6 SECS (0-40)
[2016-09-14] MEDS ORDERED: PROPOFOL 200 MG/20 ML VIAL IV ONE (08:09)
[2016-09-14] MEDS ORDERED: LIDOCAINE 2% 5 ML VIAL ONE (08:09)
--- NOTE | 2016-09-14 08:30 | Operative Note ---
Date of procedure: 09/14/16 Pre-op diagnosis: epigastric pain and dysphagia at the midesophagus Post-op diagnosis: other (This patient had a mild erythema in the distal esophagus and was dilated to 58 Turkish by single pass Vu dilator without significant heme or resistance. She also had a 1 cm hiatal hernia as well as gastric polyps and a mild to moderate linear gastritis) Procedure: PROCEDURE: Esophagogastroduodenoscopy (EGD) with cold biopsy for pathology and dilation to 58 Turkish by single pass Vu dilator REFERRING PHYSICIAN: Angel Rahman M.D. INDICATIONS: Dysphagia and epigastric tenderness. This patient also needs colorectal cancer screening as an outpatient later. The prior H&P was reviewed and interrim changes are as noted: Change from GI consultation yesterday ENDOSCOPIST: Gil Hernandez MD ENDOSCOPE: Olympus Video 100 System upper endoscope ASA CLASS: 3 EXAM: CV: regular rate and rhythm Respiratory: Clear without wheezes Abdominal: active bowel sounds MEDICATION: Per nursing anesthesia protocol, see their notes PROCEDURE: After discussion of the potential risks and benefits of upper endoscopy, the informed consent was obtained. The patient was then placed in the left lateral decubitus position where sedation was achieved as noted above. Esophageal intubation was performed without difficulty, and the endoscope was advanced through the esophagus, stomach and duodenum. A slow withdrawal was then performed with retroflexion in the stomach for careful inspection of the incisura angularis, fundus and cardia. The scope was then returned to a neutral position and withdrawn through the esophagus. The patient tolerated the procedure well and without complication. BIOPSIES: Gastric antrum and distal esophagus PHOTOGRAPHS: Obtained FINDINGS: Hypopharynx and Larynx: Normal Esohagoscopy Upper and middle thirds: Normal Lower third mild erythema for the last 3 cm of the esophagus, biopsied to rule out eosinophilic esophagitis Esophogastric junctions: No gross evidence of stricturing, this area was dilated to 58 Turkish by single pass Vu dilator Gastroscopy: Cardia/Fundus: 1 cm hiatal hernia, a few small gastric polyps noted Body: Several small gastric polyps (biopsied) as well as mild- moderate linear gastritis, biopsied Antrum and pylorus mild linear gastritis, biopsied Duodenoscopy: Bulb normal Second and third portions: Normal IMPRESSION: This patient had a mild erythema in the distal esophagus and was dilated to 58 Turkish by single pass Vu dilator without significant heme or resistance. She also had a 1 cm hiatal hernia as well as gastric polyps and a mild to moderate linear gastritis RECOMMENDATIONS: Follow up for biopsy results in 1-2 weeks by phone [phone] Continue anti-gastroesophageal reflux measures (avoid carbonated and acidic beverages, avoid eating within 2 hours of bedtime, avoid tight fitting clothing , and elevate the front bed posts 6 inches prior to sleeping. Protonix 40 mg twice daily times one month and then once a day prior to supper is appropriate--Scripts provided in the chart. We will contact the patient with biopsy results when these become available, she may need treatment for Helicobacter pylori. Schedule colonoscopy as an outpatient The gastric polyps do not require specific treatment, unless these proved to be adenomatous. Gil Hernandez MD COPY TO: Angel Rahman M.D. Anesthesia: MAC Surgeon / Physician: Gil Hernandez Estimated blood loss: minimal Specimens: other (gastric antrum/body, distal esophagus) Condition: stable Disposition: post procedure unit ([facility]) Results - Labs CBC & BMP: 09/12/16 03:09 09/14/16 05:08 Discharge Plan - Discharge Medications No Action Warfarin [Coumadin] 5 mg PO MOWEFR Warfarin Sodium 4 mg PO SUTUTHSA Celecoxib [Celebrex] 200 mg PO DAILY Perindopril Erbumine [Aceon] 4 mg PO DAILY Montelukast Sodium 10 mg PO BEDTIME Flecainide Acetate 100 mg PO BID Esomeprazole Magnesium [Nexium] 40 mg PO DAILY Metoprolol Succinate 100 mg PO BID Furosemide Tab [Lasix Tab] 80 mg PO BID DIURETIC Duloxetine HCl [Duloxetine] 30 mg PO DAILY Gabapentin Cap/Tab [Neurontin Cap/Tab] 100 mg PO BID Atorvastatin [Lipitor] 40 mg PO DAILY Insulin Aspart [NovoLOG] 0 unit SUBCUT ONCE - Follow Up or Referral - Forms/Instructions
--- NOTE | 2016-09-14 08:33 | Anesthesia ---
Anesthesia Post OP - Post Ansesthetic Evaluation Patient seen in post op: Yes Resp: within normal limits CV: within normal limits Mental: within normal limits Temp: within normal limits [id number]: within normal limits Nausea and Vomiting: within normal limits Pain: within normal limits
--- NOTE | 2016-09-14 08:33 | Gastrointestinal Progress Note ---
Assessment and Plan (1) Dysphagia Status: Acute Assessment and plan: The patient does have difficulty with food making all the way down the esophagus and I suspect she may have an underlying stricture although esophagitis may also cause this as with spasm leading to look for evidence of eosinophilic esophagitis and reflux. She needs to be off of her Coumadin for this to occur and for an INR to be 1.3 or lower. She is close at this time and agree with stopping her Coumadin. We'll give a small dosage of vitamin K, and reexamined PT/INR tomorrow to see if this has improved. We will plan on doing a dilation depending on findings at endoscopy tomorrow. 09/14/16-- findings of upper endoscopy are as follows: This patient had a mild erythema in the distal esophagus and was dilated to 58 [place] by single pass Vu dilator without significant heme or resistance. She also had a 1 cm hiatal hernia as well as gastric polyps and a mild to moderate linear gastritis. A prescription has been given for Protonix 40 mg twice daily-- this is in the front of the chart and the patient can certainly be discharged from my standpoint. We can restart the Coumadin immediately. She is to follow up with my office in order to schedule a colonoscopy as an outpatient. Current Visit: Yes (2) Epigastric pain Status: Acute Assessment and plan: This patient may have underlying gastritis versus gastroparesis present look for peptic ulcer disease especially given her exposure to Celebrex on a routine basis. Would like to rule out gastric cancer as well. The patient is not anemic I do note. Risks and benefits of the upper endoscopy were discussed with the patient and include but are not limited to: Bleeding, infection, perforation, cardiac and pulmonary compromise. The risk of perforation is higher with dilation and this was discussed with the patient. We'll increase her Protonix to twice daily in the interim or we await the procedure. 09/14/16--the patient had erosive gastritis noted in a linear fashion. Biopsies are pending for Helicobacter pylori. Protonix twice daily for one month is suggested with a single pill prior to suppertime each night thereafter. Current Visit: Yes (3) Screening for colorectal cancer Status: Acute Assessment and plan: This patient will likely need routine colorectal cancer screening as an outpatient down the road some. She states that her last colonoscopy was done by Dr. Monaco approximately 7 years ago and will want to repeat this in the next 3 years or so, or symptoms of rectal bleeding occur. For the present time we do not need to address this further this admission. Further recommendations post upper endoscopy. 09/14/16--the patient should get this scheduled as an outpatient further down the road-- a colonoscopy for colorectal cancer screening. Current Visit: Yes Gastroenterology - PN: Subj Interval history: No new complaints, esophagitis still present. Exam (Progress Note) - Constitutional Vitals: Period Temp Pulse Resp BP Sys/Ruiz Pulse Ox Last 24 Hr 97.6 F-98.9 F 52-62 16-20 107-125/53-70 92-96 General appearance: no acute distress - Eye Eye exam: Present: EOMI - Respiratory Respiratory exam: Present: clear to auscultation bilaterally - GI/Abdominal GI/Abdominal exam: Present: normal bowel sounds, tenderness (in the epigastric region), soft. Absent: distended, rebound - Neurological Exam Neurological exam: Present: alert, oriented X3, CN II-XII intact - Psychiatric Psychiatric exam: Present: normal affect, normal mood - Skin Skin exam: Present: warm Results - Labs CBC & BMP: 09/12/16 03:09 09/14/16 05:08
--- NOTE | 2016-09-14 10:40 | Discharge Summary ---
Hospital Course - Hospital Course Hospital Course: Ms. Mann was admitted with nausea and vomiting and found to have urinary tract infection, along with markedly uncontrolled blood sugar of 700. Her cultures grew out ESBL Escherichia coli, and she has been switched to doxycycline. Her cystitis/bladder spasm have markedly improved. She does have a history of A. fib and is on Coumadin. Apparently she was having some epigastric and chest discomfort and it was noted that her troponin peaked at 1.35. Cardiology was consulted and recommended outpatient follow up with Dr. Drummond, her web coordinator. She then related that she's had dysphagia to solids for some time. We consulted GI who performed EGD and dilated her esophagus and biopsy a couple gastric polyps which are pending at this time. Linear gastritis was also found, No active bleeding. He is now tolerating a diet, no nausea or vomiting. She is ready for discharge home. We will restart her Coumadin, which she takes in the setting of atrial fibrillation and I recommended that she go to her primary care provider tomorrow for INR check. We 'll provide her a prescription for doxycycline as well as Nexium 40 mg by mouth twice a day. - Time spent with patient Time with patient DS: Greater than 30 minutes Diagnosis - Discharge Diagnosis (1) Acute cystitis with positive culture Status: Acute (2) Insulin dependent diabetes mellitus Status: Acute (3) Elevated troponin Status: Acute (4) Diarrhea Status: Resolved (5) Dysphagia Status: Acute (6) Chronic anticoagulation Status: Acute (7) History of atrial fibrillation Status: Chronic (8) Gastroenteritis Status: Resolved Specialty Discharge - Follow Up or Referrals Follow up with: Ruben Maldonado DO [Physician] - (tomorrow for PT/INR) Gil Drummond MD [Physician] - 1 Week Discharge Plan - Discharge Data Disposition: Disch To Home/Self Care Condition at Discharge: Stable - Discharge Medications New Doxycycline Hyclate Cap [Vibramycin Cap] 100 mg PO BID #10 capsule Continue Warfarin [Coumadin] 5 mg PO MOWEFR Warfarin Sodium 4 mg PO SUTUTHSA Celecoxib [Celebrex] 200 mg PO DAILY Perindopril Erbumine [Aceon] 4 mg PO DAILY Montelukast Sodium 10 mg PO BEDTIME Flecainide Acetate 100 mg PO BID Metoprolol Succinate 100 mg PO BID Furosemide Tab [Lasix Tab] 80 mg PO BID DIURETIC Duloxetine HCl [Duloxetine] 30 mg PO DAILY Gabapentin Cap/Tab [Neurontin Cap/Tab] 100 mg PO BID Atorvastatin [Lipitor] 40 mg PO DAILY Insulin Aspart [NovoLOG] 0 unit SUBCUT ONCE Esomeprazole Magnesium [Nexium] 40 mg PO DAILY #60 capsule - Follow Up or Referral Follow Up: Ruben Maldonado DO [Physician] - (tomorrow for PT/INR) Gil Drummond MD [Physician] - 1 Week - Forms/Instructions Exam - Constitutional Vitals: Period Temp Pulse Resp BP Sys/Ruiz Pulse Ox Last 24 Hr 97.6 F-98.9 F 48-62 13-20 98-121/39-70 92-97 Exam: EXAM: CONSTITUTIONAL: non toxic, NAD HEENT: NC, AT, OP benign, VERITO, EOMI CV: RRR no m/g/r RESP: clear B/L, no w/r/r GI: abd soft, nontender, ND, +bowel sounds INTEGUMENTARY: no lesions or rash EXTREMITIES: no c/c/e NEURO: no focal deficits PSYCH: unremarkable, A/O x3 Discharge Results Labs on day of discharge: Labs from last 24 hours 09/14/16 09/14/16 09/14/16 07:15 05:08 05:08 INR PT Patient/Control Mix Circ Anticoag PTT Sodium 146 H Potassium 3.4 L Chloride 101 Carbon Dioxide 35 H Anion Gap 13.4 BUN 16 Creatinine 0.90 GFR Calculation 94 BUN/Creatinine Ratio 17.00 Glucose 146 H POC Glucose 137 H 163 H Calculated Osmolality 293.6 Calcium 8.5 09/14/16 09/14/16 09/14/16 05:08 05:08 04:25 INR 1.2 1.2 PT Patient/Control Mix 12.4 12.4 Circ Anticoag PTT 29.6 Sodium Potassium Chloride Carbon Dioxide Anion Gap BUN Creatinine GFR Calculation BUN/Creatinine Ratio Glucose POC Glucose 36 L* Calculated Osmolality Calcium 09/13/16 09/13/16 09/13/16 19:19 15:29 10:52 INR PT Patient/Control Mix Circ Anticoag PTT Sodium Potassium Chloride Carbon Dioxide Anion Gap BUN Creatinine GFR Calculation BUN/Creatinine Ratio Glucose POC Glucose 242 H 300 H 331 H Calculated Osmolality Calcium DS: Provider Date of admission: 09/10/16 01:30 Primary care physician: . No PCP Attending physician on admission: Loki Dumont MD Consults: 09/10/16 02:33 Consult to [facility], Educator [CONS] Routine Reason for Cotton Ginner: Diabetes Education Consult to Dietitian [CONS] Routine Reason for Dietitian: Dietary Consult 09/10/16 02:37 Consult to Pastoral Services [CONS] Routine Comment: Pastoral Screen: Request Human Resources Director Visit Pastoral Screen Source of Request: Patient 09/12/16 15:42 Consult to Physician [CONS] Routine Comment: dysphagia to solids, needs egd Consulting Provider: Gil Hernandez Consult to Specialist Group: Gastroenterology When should Consulting Provider be notified: In am Person Notified: BRIAN Date Notified: 09/13/16 Time Notified: 07:35 09/13/16 17:38 Consult to Anesthesiology [CONS] Routine Consulting Provider: Reason for Anesthesiology: Pre-op Clearance Discharging clinician: Angel Rahman DO Expected date of discharge: 09/14/16
[2016-09-14] MEDS: DOXYCYCLINE HYCLATE INJ 100 MG in SODIUM CHLORIDE 0.9% 100 ML IV SCH (10:59)
[2016-09-14] MEDS: FLECAINIDE 100 MG TABLET PO SCH (11:00)
[2016-09-14] MEDS: FUROSEMIDE 80 MG TABLET PO SCH (11:00)
[2016-09-14] MEDS: GABAPENTIN 100 MG CAPSULE PO SCH (11:00)
[2016-09-14] MEDS: DULoxetine 30 MG CAPSULE PO SCH (11:00)
[2016-09-14] MEDS: INSULIN REGULAR 100 UNIT/ML SUBCUT SCH ×2 (11:01→12:53)
[2016-09-14] MEDS: ATORVASTATIN 40 MG TABLET PO SCH (11:01)
[2016-09-14] MEDS: ONDANSETRON 4 MG/2 ML VIAL IV PRN (11:45)
[2016-09-14] MEDS: METOPROLOL SUCCINATE XL 100 MG TABLET PO SCH (11:45)
[2016-09-14 12:52] VITALS: BP 98/68
--- NOTE | 2016-09-15 11:46 | Pathology Report from [facility] ---
ACCESSION # : [id number] PATIENT NAME : Zunilda Manzano ORDERING DR : Gil Hernandez MD CLINICAL HX: Epigastric pain, GERD, dysphagia POST-OP DX: Same SPECIMEN INFO: #1 WILLIAM #2 Esophageal biopsies/distal GROSS DESCRIPTION: The specimen is received in formalin labeled with the patient 's name Zunilda Manzano in 2 parts. The first labeled #1 is a 0.7 x 0.3 cm aggregate of veras mucosal tissue. Submitted in casssette #1.#2 Consists of a 0.6 x 0.3 cm aggregate of veras tissue. Submitted in casssette #2. DIAGNOSIS FOR ZUNILDA MANZANO: #1 WILLIAM BIOPSIES: Chronic gastritis. H. pylori not seen on special stain.#2 ESOPHAGEAL BIOPSIES/DISTAL: Fragmented esophageal squamous mucosa with epithelial hyperplasia/chronic esophagitis. SERVICE DATE: 09/14/2016 REPORT DATE: 09/15/2016 PATHOLOGIST: Alex Colon
== END 2016-09-14 12:59 | disposition home or self-care (01) | DRG 637 ==
LOC: EDUNIT# → N.ED 23:17 → N.EDINP 09-10 01:30 → N.ICU 09-10 02:06 → N.2E 09-10 15:06
PROVIDERS: ADMIT Internal Medicine; ATTEND Internal Medicine

== ENCOUNTER 2017-06-13 10:53 | Inpatient (IN) ==
[2017-06-13] MEDS ORDERED: ONDANSETRON 4 MG/2 ML VIAL IV PRN (14:41)
[2017-06-13] MEDS ORDERED: ACETAMINOPHEN 325 MG TABLET PO PRN (14:41)
[2017-06-13] MEDS ORDERED: GLUCAGON 1 MG VIAL IM PRN (14:44)
[2017-06-13] MEDS ORDERED: DEXTROSE 50% 25 GM/50 ML VIAL IV PRN (14:44)
[2017-06-13 15:35] LABS: Basophils # 0.1 10*3/uL (0.0-0.2); Eosinophils # 0.3 10*3/uL (0.0-0.87); Eosinophils % 4.7 % (0.00-10.9); Hematocrit 41.7 VOL% (35.7-47.0); Hemoglobin 13.6 GM/DL (12.0-16.0); Immature Granulocytes % 0.3 %; Immature Granulocytes Absolute 0.02 #; Lymphocytes # 1.2 10*3/uL (1.4-4.0); Mean Corpuscular HGB Conc 32.6 GM/DL (32-36); Mean Corpuscular Hemoglobin 29 PG (27-34); Mean Corpuscular Volume 90.1 FL (87-102); Mean Platelet Volume 11.5 FL (9.6-12.0); Monocytes # 0.5 10*3/uL (0.11-0.8); Monocytes % 8.5 % (1.7-12.7); Neutrophils # 4.1 10*3/uL (1.4-7.4); Neutrophils % 65.5 % (38.7-73.9); Platelet Count 251 T/CUMM (130-400); Red Blood Count 4.63 MC/CUMM (3.8-5.5); Red Cell Distribution Width 14.5 % (9.3-17.3); White Blood Count 6.2 T/CUMM (4-12)
[2017-06-13 15:43] LABS: INR 2.8
[2017-06-13 15:46] LABS: PT Patient Result 28.3 SECS
[2017-06-13 15:59] LABS: Calcium 9.2 MG/DL (8.5-10.1); Magnesium 2.1 MG/DL (1.8-2.4); Osmolality,Calculated 278.1 MOS/KG (273-304)
[2017-06-13] MEDS ORDERED: ONDANSETRON 4 MG TABLET PO PRN (16:33)
[2017-06-13] MEDS ORDERED: WARFARIN 5 MG TABLET PO SCH (18:00)
[2017-06-13] MEDS: GABAPENTIN 100 MG CAPSULE PO SCH (21:31)
[2017-06-13] MEDS: METOPROLOL SUCCINATE XL 100 MG TABLET PO SCH (21:31)
[2017-06-13] MEDS: MONTELUKAST 10 MG TABLET PO SCH (21:31)
[2017-06-13] MEDS: DULoxetine 30 MG CAPSULE PO SCH (21:31)
[2017-06-13] MEDS: FLECAINIDE 100 MG TABLET PO SCH (21:51)
[2017-06-13] MEDS: diphenhydrAMINE CAP 25 MG CAPSULE PO PRN (23:59)
[2017-06-14 01:38] LABS: Basophils # 0.1 10*3/uL (0.0-0.2); Eosinophils # 0.3 10*3/uL (0.0-0.87); Eosinophils % 5.5 % (0.00-10.9); Hematocrit 38.5 VOL% (35.7-47.0); Hemoglobin 12.7 GM/DL (12.0-16.0); Immature Granulocytes % 0.3 %; Immature Granulocytes Absolute 0.02 #; Lymphocytes # 1.2 10*3/uL (1.4-4.0); Lymphocytes % 20.9 % (21.3-54.2); Mean Corpuscular Hemoglobin 29 PG (27-34); Mean Corpuscular Volume 87.9 FL (87-102); Mean Platelet Volume 11.6 FL (9.6-12.0); Monocytes # 0.5 10*3/uL (0.11-0.8); Neutrophils # 3.7 10*3/uL (1.4-7.4); Neutrophils % 63.3 % (38.7-73.9); Platelet Count 212 T/CUMM (130-400); Red Blood Count 4.38 MC/CUMM (3.8-5.5); Red Cell Distribution Width 14.2 % (9.3-17.3); White Blood Count 5.8 T/CUMM (4-12)
[2017-06-14 09:53] LABS: Osmolality,Calculated 282.4 MOS/KG (273-304); Osmolality,Calculated 283.4 MOS/KG (273-304); Potassium 4.1 MMOL/L (3.5-5.1); Risk Ratio 2.29; VLDL CHOLESTEROL 15.8 MG/DL
[2017-06-14 10:13] LABS: Free T4 (Free Thyroxine) 1.18 NG/DL (0.76-1.46)
[2017-06-14 10:29] LABS: INR 2.8
[2017-06-14] MEDS: METOPROLOL SUCCINATE XL 100 MG TABLET PO SCH ×2 (13:56→20:37)
[2017-06-14] MEDS: FUROSEMIDE 80 MG TABLET PO SCH ×2 (13:56→17:55)
[2017-06-14] MEDS: PANTOPRAZOLE 40 MG TABLET PO SCH (13:56)
[2017-06-14] MEDS: CELECOXIB 200 MG CAPSULE PO SCH (13:56)
[2017-06-14] MEDS: ATORVASTATIN 40 MG TABLET PO SCH (13:56)
[2017-06-14] MEDS: ASPIRIN EC 81 MG TABLET PO SCH (13:57)
[2017-06-14] MEDS ORDERED: WARFARIN 4 MG TABLET PO SCH (18:00)
[2017-06-14] MEDS: GABAPENTIN 100 MG CAPSULE PO SCH (20:36)
[2017-06-14] MEDS: FLECAINIDE 100 MG TABLET PO SCH (20:36)
[2017-06-14] MEDS: DULoxetine 30 MG CAPSULE PO SCH (20:36)
[2017-06-14] MEDS: MONTELUKAST 10 MG TABLET PO SCH (20:36)
[2017-06-14] MEDS: diphenhydrAMINE CAP 25 MG CAPSULE PO PRN (22:55)
[2017-06-15] MEDS: FUROSEMIDE 80 MG TABLET PO SCH ×2 (09:58→16:17)
[2017-06-15] MEDS: METOPROLOL SUCCINATE XL 100 MG TABLET PO SCH ×2 (09:59→22:08)
[2017-06-15] MEDS: ATORVASTATIN 40 MG TABLET PO SCH (09:59)
[2017-06-15] MEDS: ASPIRIN EC 81 MG TABLET PO SCH (09:59)
[2017-06-15] MEDS: CELECOXIB 200 MG CAPSULE PO SCH (09:59)
[2017-06-15] MEDS: PANTOPRAZOLE 40 MG TABLET PO SCH (09:59)
[2017-06-15 13:49] LABS: Apearance,Urine CLEAR (Clear); Bacteria,Urine Occasional /HPF (Few); Bilirubin,Urine Negative (Negative); Blood, Urine Small mg/dL (Negative); Glucose,Urine (UA) Negative (Negative); Ketones,Urine Negative (Negative); Nitrite,Urine Negative (Negative); Protein,Urine Negative; RBC,Urine 1 /HPF (0-4); Squamous Epithelial Cell,Urine Occasional /HPF (0-10); Urine Color Colorless (Yellow); Urine Specific Gravity 1.003 (1.001-1.035); Urine Urobilinogen < 2.0 EU/DL (0.2-1.0); WBC,Urine 13 /HPF (0-6)
[2017-06-15] MEDS: DULoxetine 30 MG CAPSULE PO SCH (22:08)
[2017-06-15] MEDS: MONTELUKAST 10 MG TABLET PO SCH (22:08)
[2017-06-15] MEDS: GABAPENTIN 100 MG CAPSULE PO SCH (22:08)
[2017-06-15] MEDS: FLECAINIDE 100 MG TABLET PO SCH (22:08)
[2017-06-15] MEDS: diphenhydrAMINE CAP 25 MG CAPSULE PO PRN (22:08)
[2017-06-16] MEDS ORDERED: FLUMAZENIL 0.5 MG/5 ML VIAL IV ONE (07:33)
[2017-06-16] MEDS ORDERED: MIDAZOLAM 10 MG/2 ML VIAL ONE (07:33)
[2017-06-16] MEDS ORDERED: NALOXONE 0.4 MG/ML VIAL ONE (07:34)
[2017-06-16] MEDS ORDERED: MEPERIDINE 50 MG/1 ML VIAL ONE (07:34)
[2017-06-16] MEDS: METOPROLOL SUCCINATE XL 100 MG TABLET PO SCH ×2 (13:06→22:15)
[2017-06-16] MEDS: FUROSEMIDE 80 MG TABLET PO SCH ×2 (13:06→18:49)
[2017-06-16] MEDS: ASPIRIN EC 81 MG TABLET PO SCH (13:06)
[2017-06-16] MEDS: PANTOPRAZOLE 40 MG TABLET PO SCH (13:06)
[2017-06-16] MEDS: CELECOXIB 200 MG CAPSULE PO SCH (13:06)
[2017-06-16] MEDS: ATORVASTATIN 40 MG TABLET PO SCH (13:06)
[2017-06-16] MEDS: diphenhydrAMINE CAP 25 MG CAPSULE PO PRN (21:32)
[2017-06-16] MEDS: GABAPENTIN 100 MG CAPSULE PO SCH (21:33)
[2017-06-16] MEDS: DULoxetine 30 MG CAPSULE PO SCH (21:33)
[2017-06-16] MEDS: MONTELUKAST 10 MG TABLET PO SCH (21:33)
[2017-06-16] MEDS: FLECAINIDE 100 MG TABLET PO SCH (21:33)
[2017-06-16] MEDS: CIPROFLOXACIN 500 MG TABLET PO SCH (23:30)
[2017-06-17 05:37] LABS: Basophils # 0.1 10*3/uL (0.0-0.2); Basophils % 1.1 % (0.0-0.8); Eosinophils # 0.5 10*3/uL (0.0-0.87); Eosinophils % 6.9 % (0.00-10.9); Hematocrit 38.8 VOL% (35.7-47.0); Hemoglobin 12.5 GM/DL (12.0-16.0); Immature Granulocytes % 0.7 %; Immature Granulocytes Absolute 0.05 #; Lymphocytes # 1.4 10*3/uL (1.4-4.0); Lymphocytes % 19.6 % (21.3-54.2); Mean Corpuscular HGB Conc 32.2 GM/DL (32-36); Mean Corpuscular Hemoglobin 29 PG (27-34); Mean Corpuscular Volume 90.2 FL (87-102); Mean Platelet Volume 11.4 FL (9.6-12.0); Monocytes # 0.7 10*3/uL (0.11-0.8); Monocytes % 9.5 % (1.7-12.7); Neutrophils # 4.5 10*3/uL (1.4-7.4); Neutrophils % 62.2 % (38.7-73.9); Platelet Count 220 T/CUMM (130-400); Red Cell Distribution Width 14.6 % (9.3-17.3); White Blood Count 7.2 T/CUMM (4-12)
[2017-06-17 06:21] LABS: Calcium 8.6 MG/DL (8.5-10.1); Osmolality,Calculated 291.3 MOS/KG (273-304); Potassium 3.8 MMOL/L (3.5-5.1)
[2017-06-17] MEDS: ATORVASTATIN 40 MG TABLET PO SCH (08:57)
[2017-06-17] MEDS: CELECOXIB 200 MG CAPSULE PO SCH (08:58)
[2017-06-17] MEDS: PANTOPRAZOLE 40 MG TABLET PO SCH (08:58)
[2017-06-17] MEDS: CIPROFLOXACIN 500 MG TABLET PO SCH (08:58)
[2017-06-17] MEDS: FUROSEMIDE 80 MG TABLET PO SCH ×2 (08:58→15:33)
[2017-06-17] MEDS: ASPIRIN EC 81 MG TABLET PO SCH (09:00)
[2017-06-17] MEDS: METOPROLOL SUCCINATE XL 100 MG TABLET PO SCH (09:10)
[2017-06-17 14:40] VITALS: BP 146/61
[2017-06-18] MEDS ORDERED: METOPROLOL SUCCINATE XL 100 MG TABLET PO SCH (09:00)
== END 2017-06-17 16:06 | disposition home or self-care (01) | DRG 309 ==
LOC: EDUNIT# → EDBD → N.ED 10:53 → N.EDINP 12:53 → INTOOBSV 12:53 → N.TELEN 13:50
PROVIDERS: ADMIT Family Medicine; ATTEND Family Medicine

== ENCOUNTER 2017-08-11 18:25 | Inpatient (IN) ==
[2017-08-11 19:43] LABS: Basophils # 0.1 10*3/uL (0.0-0.2); Eosinophils # 0.3 10*3/uL (0.0-0.87); Eosinophils % 3.4 % (0.00-10.9); Hematocrit 42.9 VOL% (35.7-47.0); Hemoglobin 14.5 GM/DL (12.0-16.0); Immature Granulocytes % 0.3 %; Immature Granulocytes Absolute 0.02 #; Lymphocytes # 1.6 10*3/uL (1.4-4.0); Lymphocytes % 22.4 % (21.3-54.2); Mean Corpuscular HGB Conc 33.8 GM/DL (32-36); Mean Corpuscular Hemoglobin 29 PG (27-34); Mean Corpuscular Volume 86.8 FL (87-102); Mean Platelet Volume 12.1 FL (9.6-12.0); Monocytes # 0.5 10*3/uL (0.11-0.8); Monocytes % 7.2 % (1.7-12.7); Neutrophils # 4.8 10*3/uL (1.4-7.4); Neutrophils % 65.7 % (38.7-73.9); Platelet Count 259 T/CUMM (130-400); Red Blood Count 4.94 MC/CUMM (3.8-5.5); Red Cell Distribution Width 14.9 % (9.3-17.3); White Blood Count 7.3 T/CUMM (4-12)
[2017-08-11 19:54] LABS: INR 3.3
[2017-08-11 20:14] LABS: Alanine Aminotransferase 28 U/L (13-56); Albumin 3.3 G/DL (3.4-5.0); Alkaline Phosphatase 136 U/L (45-117); Aspartate Amino Transferase 26 U/L (0-37); Blood Urea Nitrogen 22 MG/DL (7-18); Calcium 8.6 MG/DL (8.5-10.1); Glucose 143 MG/DL (74-106); Osmolality,Calculated 285.3 MOS/KG (273-304); Potassium 4.1 MMOL/L (3.5-5.1); Sodium 141 MMOL/L (136-145); Total Protein 7.1 G/DL (6.4-8.3); Troponin I Only < 0.015 NG/ML (0.00-0.045)
[2017-08-11 20:26] LABS: PT Patient Result 33.7 SECS
[2017-08-11] MEDS ORDERED: ONDANSETRON 4 MG/2 ML VIAL IV PRN (21:04)
[2017-08-11] MEDS ORDERED: SODIUM CHLORIDE 0.9% 1,000 ML IV SCH (21:30)
[2017-08-11] MEDS ORDERED: FLECAINIDE 100 MG TABLET PO SCH (23:00)
[2017-08-11] MEDS ORDERED: PANTOPRAZOLE 40 MG TABLET PO ONE (23:05)
[2017-08-11] MEDS ORDERED: GABAPENTIN 100 MG CAPSULE ONE (23:05)
[2017-08-11] MEDS ORDERED: FUROSEMIDE 80 MG TABLET ONE (23:05)
[2017-08-11] MEDS ORDERED: ATORVASTATIN 40 MG TABLET ONE ×2 (23:05→23:06)
[2017-08-11] MEDS: PANTOPRAZOLE 40 MG TABLET PO SCH (23:15)
[2017-08-11] MEDS: GABAPENTIN 100 MG CAPSULE PO SCH (23:15)
[2017-08-11] MEDS: ATORVASTATIN 40 MG TABLET PO SCH (23:15)
[2017-08-11] MEDS: FUROSEMIDE 80 MG TABLET PO SCH (23:19)
[2017-08-11] MEDS: DULoxetine 30 MG CAPSULE PO SCH (23:21)
[2017-08-12 09:12] LABS: Basophils % 0.8 % (0.0-0.8); Eosinophils # 0.3 10*3/uL (0.0-0.87); Eosinophils % 5.2 % (0.00-10.9); Hematocrit 42.2 VOL% (35.7-47.0); Hemoglobin 13.6 GM/DL (12.0-16.0); Immature Granulocytes % 0.4 %; Immature Granulocytes Absolute 0.02 #; Lymphocytes # 1.2 10*3/uL (1.4-4.0); Lymphocytes % 22.9 % (21.3-54.2); Mean Corpuscular HGB Conc 32.2 GM/DL (32-36); Mean Corpuscular Hemoglobin 29 PG (27-34); Mean Corpuscular Volume 88.8 FL (87-102); Mean Platelet Volume 12.4 FL (9.6-12.0); Monocytes # 0.5 10*3/uL (0.11-0.8); Monocytes % 9.5 % (1.7-12.7); Neutrophils # 3.2 10*3/uL (1.4-7.4); Neutrophils % 61.2 % (38.7-73.9); Platelet Count 246 T/CUMM (130-400); Red Blood Count 4.75 MC/CUMM (3.8-5.5); Red Cell Distribution Width 14.9 % (9.3-17.3); White Blood Count 5.2 T/CUMM (4-12)
[2017-08-12 09:22] LABS: INR 3.2
[2017-08-12 09:49] LABS: Calcium 8.2 MG/DL (8.5-10.1); Osmolality,Calculated 289.6 MOS/KG (273-304); Potassium 3.7 MMOL/L (3.5-5.1)
[2017-08-12] MEDS ORDERED: DEXTROSE 50% 25 GM/50 ML SYRINGE IV ONE (10:11)
[2017-08-12] MEDS ORDERED: DEXTROSE 50% 25 GM/50 ML VIAL IV STA (10:20)
[2017-08-12] MEDS ORDERED: FUROSEMIDE 80 MG TABLET ONE (10:37)
[2017-08-12] MEDS: FLECAINIDE 50 MG TABLET PO SCH ×2 (10:45→22:09)
[2017-08-12] MEDS: FUROSEMIDE 80 MG TABLET PO SCH ×2 (10:47→15:54)
[2017-08-12] MEDS: ACEON PO SCH ×2 (10:50→22:16)
[2017-08-12] MEDS: WARFARIN 4 MG TABLET PO SCH (17:28)
[2017-08-12] MEDS: DULoxetine 30 MG CAPSULE PO SCH (22:06)
[2017-08-12] MEDS: ATORVASTATIN 40 MG TABLET PO SCH (22:07)
[2017-08-12] MEDS: GABAPENTIN 100 MG CAPSULE PO SCH (22:07)
[2017-08-12] MEDS: PANTOPRAZOLE 40 MG TABLET PO SCH (22:08)
[2017-08-12] MEDS: MONTELUKAST 10 MG TABLET PO SCH (22:08)
[2017-08-12] MEDS: METOPROLOL SUCCINATE XL 100 MG TABLET PO SCH (22:10)
[2017-08-12] MEDS: traMADol 50 MG TABLET PO PRN (22:10)
[2017-08-12] MEDS: diphenhydrAMINE CAP 25 MG CAPSULE PO PRN (22:14)
[2017-08-13] MEDS: FUROSEMIDE 80 MG TABLET PO SCH ×2 (08:44→17:08)
[2017-08-13] MEDS: FLECAINIDE 50 MG TABLET PO SCH ×2 (08:44→22:02)
[2017-08-13] MEDS: WARFARIN 4 MG TABLET PO SCH (17:08)
[2017-08-13] MEDS: DULoxetine 30 MG CAPSULE PO SCH (21:59)
[2017-08-13] MEDS: GABAPENTIN 100 MG CAPSULE PO SCH (21:59)
[2017-08-13] MEDS: ATORVASTATIN 40 MG TABLET PO SCH (21:59)
[2017-08-13] MEDS: ACEON PO SCH (22:01)
[2017-08-13] MEDS: PANTOPRAZOLE 40 MG TABLET PO SCH (22:01)
[2017-08-13] MEDS: MONTELUKAST 10 MG TABLET PO SCH (22:02)
[2017-08-13] MEDS: METOPROLOL SUCCINATE XL 100 MG TABLET PO SCH (22:02)
[2017-08-13] MEDS: traMADol 50 MG TABLET PO PRN (22:06)
[2017-08-13] MEDS: diphenhydrAMINE CAP 25 MG CAPSULE PO PRN (22:07)
[2017-08-14] MEDS: FLECAINIDE 50 MG TABLET PO SCH ×2 (08:24→22:26)
[2017-08-14] MEDS: FUROSEMIDE 80 MG TABLET PO SCH ×2 (08:24→15:23)
[2017-08-14] MEDS: WARFARIN 4 MG TABLET PO SCH (17:29)
[2017-08-14] MEDS: diphenhydrAMINE CAP 25 MG CAPSULE PO PRN (22:26)
[2017-08-14] MEDS: MONTELUKAST 10 MG TABLET PO SCH (22:26)
[2017-08-14] MEDS: DULoxetine 30 MG CAPSULE PO SCH (22:26)
[2017-08-14] MEDS: PANTOPRAZOLE 40 MG TABLET PO SCH (22:27)
[2017-08-14] MEDS: METOPROLOL SUCCINATE XL 100 MG TABLET PO SCH (22:27)
[2017-08-14] MEDS: GABAPENTIN 100 MG CAPSULE PO SCH (22:27)
[2017-08-14] MEDS: ATORVASTATIN 40 MG TABLET PO SCH (22:27)
[2017-08-14] MEDS: ACEON PO SCH (22:28)
[2017-08-15] MEDS ORDERED: MIDAZOLAM 10 MG/2 ML VIAL ONE (07:28)
[2017-08-15] MEDS ORDERED: MIDAZOLAM 2 MG/2 ML VIAL IV ONE (07:43)
[2017-08-15] MEDS ORDERED: SODIUM CHLORIDE 0.9% 1,000 ML IV SCH (08:00)
[2017-08-15] MEDS: FUROSEMIDE 80 MG TABLET PO SCH ×2 (09:42→16:26)
[2017-08-15] MEDS: FLECAINIDE 50 MG TABLET PO SCH (09:42)
[2017-08-15 12:16] VITALS: BP 102/67
[2017-08-16] MEDS ORDERED: WARFARIN 5 MG TABLET PO SCH (18:00)
== END 2017-08-15 16:48 | disposition home or self-care (01) | DRG 309 ==
LOC: N.ED 18:25 → N.EDINP 22:04 → N.TELES 08-12 12:10
PROVIDERS: ADMIT Internal Medicine Cardiovascular Disease; ATTEND Internal Medicine Cardiovascular Disease

== ENCOUNTER 2017-12-11 04:48 | Inpatient (IN) ==
[2017-12-11] MEDS ORDERED: ALUM/MAG/SIMETH/LIDO VISC 1:1 30 ML BOTTLE PO STA (05:46)
[2017-12-11] MEDS ORDERED: ONDANSETRON 4 MG/2 ML VIAL IV STA (05:46)
[2017-12-11] MEDS ORDERED: SODIUM CHLORIDE 0.9% 1,000 ML IV STA (05:46)
[2017-12-11] MEDS ORDERED: fentaNYL 100 MCG/2 ML VIAL IV STA (05:48)
[2017-12-11 07:37] LABS: Basophils # 0.1 10*3/uL (0.0-0.2); Basophils % 0.6 % (0.0-0.8); Eosinophils % 0.1 % (0.00-10.9); Hematocrit 40.7 VOL% (35.7-47.0); Hemoglobin 13.2 GM/DL (12.0-16.0); Immature Granulocytes % 0.4 %; Immature Granulocytes Absolute 0.05 #; Lymphocytes # 0.7 10*3/uL (1.4-4.0); Lymphocytes % 5.2 % (21.3-54.2); Mean Corpuscular HGB Conc 32.4 GM/DL (32-36); Mean Corpuscular Hemoglobin 30 PG (27-34); Mean Corpuscular Volume 92.5 FL (87-102); Mean Platelet Volume 12.5 FL (9.6-12.0); Monocytes # 0.8 10*3/uL (0.11-0.8); Neutrophils % 87.7 % (38.7-73.9); Platelet Count 199 T/CUMM (130-400); Red Cell Distribution Width 13.8 % (9.3-17.3); White Blood Count 12.5 T/CUMM (4-12)
[2017-12-11] MEDS ORDERED: INSULIN LISPRO 100 UNIT/ML SUBCUT STA (08:11)
[2017-12-11 08:12] LABS: Albumin 3.3 G/DL (3.4-5.0); Bilirubin,Total 1.3 MG/DL (0.2-1.0); Calcium 9.1 MG/DL (8.5-10.1); Osmolality,Calculated 297.8 MOS/KG (273-304); Potassium 5.1 MMOL/L (3.5-5.1); Total Protein 6.8 G/DL (6.4-8.3)
[2017-12-11] MEDS ORDERED: INSULIN REGULAR 100 UNIT/ML IV STA (08:16)
[2017-12-11] MEDS ORDERED: INSULIN REGULAR 100 UNIT/ML ONE (08:18)
[2017-12-11] MEDS ORDERED: PROMETHAZINE 25 MG/1 ML VIAL ONE (08:22)
[2017-12-11] MEDS ORDERED: PROMETHAZINE INJ 25 MG in SODIUM CHLORIDE 0.9% 50 ML IV STA (08:27)
[2017-12-11] MEDS ORDERED: PROMETHAZINE 25 MG/1 ML VIAL IM STA (08:28)
[2017-12-11 08:29] LABS: INR 2.3
[2017-12-11 08:32] LABS: PT Patient Result 23.5 SECS
[2017-12-11] MEDS ORDERED: LEVOFLOXACIN INJ 500 MG in PREMIX 1 EACH IV STA (08:50)
[2017-12-11] MEDS ORDERED: ONDANSETRON 4 MG TABLET PO PRN (09:39)
[2017-12-11] MEDS ORDERED: NITROGLYCERIN SL 0.4 MG TABLET SL PRN (09:39)
[2017-12-11] MEDS ORDERED: DEXTROSE 50% 25 GM/50 ML VIAL IV PRN ×3 (09:47→12:16)
[2017-12-11] MEDS ORDERED: GLUCAGON 1 MG VIAL IM PRN (09:47)
[2017-12-11 10:20] LABS: Apearance,Urine CLOUDY (Clear); Bacteria,Urine Few /HPF (Few); Bilirubin,Urine Negative (Negative); Blood, Urine Small mg/dL (Negative); Glucose,Urine (UA) >=500 mg/dL (Negative); Hyaline Casts,Urine 4 /LPF (0-3); Ketones,Urine 5 mg/dL (Negative); Mucus,Urine Occasional /LPF (Occasional); Nitrite,Urine Negative (Negative); Protein,Urine 30 MG/DL; RBC,Urine 5 /HPF (0-4); Squamous Epithelial Cell,Urine Occasional /HPF (0-10); Urine Color Yellow (Yellow); Urine Specific Gravity 1.013 (1.001-1.035); WBC,Urine 36 /HPF (0-6)
[2017-12-11 11:02] LABS: ABG Base Excess -2.2 MMOL/L (-2.5-2.5); ABG HCO3 22.5 MMOL/L (20-26); ABG Oxygen Saturation 95.6 % (95-100); ABG PCO2 42.9 MM HG (35-48); ABG PH 7.347 (7.35-7.45); ABG PO2 82.3 MM HG (80-95); ABG TCO2 20.9 MMOL/L (23-27)
[2017-12-11] MEDS ORDERED: INSULIN LISPRO 100 UNIT/ML SUBCUT SCH (11:30)
[2017-12-11 11:48] LABS: Troponin I Only 0.091 NG/ML (0.00-0.045)
[2017-12-11] MEDS ORDERED: LEVOFLOXACIN INJ 500 MG in PREMIX 1 EACH IV SCH (12:00)
[2017-12-11] MEDS ORDERED: POTASSIUM CHLORIDE RIDER 10 MEQ in PREMIX 1 EACH IV PRN (12:16)
[2017-12-11] MEDS ORDERED: SODIUM BICARB INJ 100 MEQ in STERILE WATER INJ 400 ML IV PRN (12:16)
[2017-12-11] MEDS ORDERED: MAGNESIUM SULF RIDER 2 GM in PREMIX 1 EACH IV PRN (12:16)
[2017-12-11] MEDS ORDERED: MAGNESIUM SULF RIDER 4 GM in PREMIX 1 EACH IV PRN (12:16)
[2017-12-11] MEDS ORDERED: SODIUM PHOSPHATE INJ 30 MMOL in SODIUM CHLORIDE 0.9% 250 ML IV PRN (12:16)
[2017-12-11] MEDS ORDERED: INSULIN REGULAR 100 UNIT/ML IV ONE (12:16)
[2017-12-11 12:46] LABS: Basophils % 0.3 % (0.0-0.8); Hematocrit 37.8 VOL% (35.7-47.0); Hemoglobin 12.4 GM/DL (12.0-16.0); Immature Granulocytes % 0.4 %; Immature Granulocytes Absolute 0.04 #; Lymphocytes # 0.7 10*3/uL (1.4-4.0); Lymphocytes % 6.5 % (21.3-54.2); Mean Corpuscular HGB Conc 32.8 GM/DL (32-36); Mean Corpuscular Hemoglobin 30 PG (27-34); Mean Corpuscular Volume 90.9 FL (87-102); Mean Platelet Volume 11.7 FL (9.6-12.0); Monocytes # 0.8 10*3/uL (0.11-0.8); Monocytes % 7.7 % (1.7-12.7); Neutrophils # 8.7 10*3/uL (1.4-7.4); Neutrophils % 85.1 % (38.7-73.9); Platelet Count 186 T/CUMM (130-400); Red Blood Count 4.16 MC/CUMM (3.8-5.5); Red Cell Distribution Width 13.9 % (9.3-17.3); White Blood Count 10.2 T/CUMM (4-12)
[2017-12-11] MEDS: SODIUM CHLORIDE 0.9% 1,000 ML IV SCH ×2 (13:04→18:20)
[2017-12-11 13:22] LABS: Calcium 8.4 MG/DL (8.5-10.1); Osmolality,Calculated 299.1 MOS/KG (273-304); Potassium 4.8 MMOL/L (3.5-5.1)
[2017-12-11] MEDS: INSULIN REGULAR DRIP 100 ML IV SCH (13:38)
[2017-12-11 13:41] LABS: ABG Base Excess -1.4 MMOL/L (-2.5-2.5); ABG HCO3 23.2 MMOL/L (20-26); ABG Oxygen Saturation 97.5 % (95-100); ABG PCO2 42.1 MM HG (35-48); ABG PH 7.364 (7.35-7.45); ABG TCO2 21.3 MMOL/L (23-27)
[2017-12-11] MEDS: ONDANSETRON 4 MG/2 ML VIAL IV PRN (14:54)
[2017-12-11] MEDS: ACETAMINOPHEN 325 MG TABLET PO PRN (15:36)
[2017-12-11] MEDS ORDERED: SODIUM CHLORIDE 0.9% 500 ML IV ONE (15:39)
[2017-12-11 15:49] LABS: ABG Base Excess 0.2 MMOL/L (-2.5-2.5); ABG HCO3 24.5 MMOL/L (20-26); ABG Oxygen Saturation 95.3 % (95-100); ABG PCO2 42.1 MM HG (35-48); ABG PH 7.387 (7.35-7.45); ABG PO2 74.8 MM HG (80-95); ABG TCO2 22.5 MMOL/L (23-27)
[2017-12-11] MEDS ORDERED: WARFARIN 4 MG TABLET PO SCH (18:00)
[2017-12-11] MEDS ORDERED: SODIUM CHLORIDE 0.45% 500 ML IV ONE (18:13)
[2017-12-11] MEDS ORDERED: NOREPINEPHRINE 8 MG in SODIUM CHLORIDE 0.9% 242 ML IV PRN (18:56)
[2017-12-11] MEDS ORDERED: NOREPINEPHRINE 4 MG/4 ML VIAL IV ONE (19:05)
[2017-12-11] MEDS: MONTELUKAST 10 MG TABLET PO SCH (20:21)
[2017-12-11] MEDS: ATORVASTATIN 40 MG TABLET PO SCH (20:21)
[2017-12-11] MEDS: GABAPENTIN 100 MG CAPSULE PO SCH (20:21)
[2017-12-11] MEDS: DULoxetine 30 MG CAPSULE PO SCH (20:21)
[2017-12-11] MEDS: FLECAINIDE 50 MG TABLET PO SCH (20:21)
[2017-12-11] MEDS ORDERED: PERINDOPRIL ERBUMINE 4 MG PO SCH (21:00)
[2017-12-11] MEDS ORDERED: CELECOXIB 200 MG CAPSULE PO SCH (21:00)
[2017-12-11 22:04] LABS: Blood Urea Nitrogen 30 MG/DL (7-18); Calcium 8.5 MG/DL (8.5-10.1); Glucose 179 MG/DL (74-106); Osmolality,Calculated 288.4 MOS/KG (273-304); Potassium 4.1 MMOL/L (3.5-5.1); Sodium 140 MMOL/L (136-145)
[2017-12-11 22:05] LABS: Troponin I Only 0.695 NG/ML (0.00-0.045)
[2017-12-12] MEDS: SODIUM CHLORIDE 0.45% 1,000 ML IV SCH ×5 (01:00→22:32)
[2017-12-12 01:11] LABS: Calcium 8.2 MG/DL (8.5-10.1); Osmolality,Calculated 292.3 MOS/KG (273-304); Potassium 4.3 MMOL/L (3.5-5.1)
[2017-12-12 05:21] LABS: Basophils % 0.5 % (0.0-0.8); Eosinophils # 0.2 10*3/uL (0.0-0.87); Eosinophils % 2.6 % (0.00-10.9); Hematocrit 25.1 VOL% (35.7-47.0); Hemoglobin 8.2 GM/DL (12.0-16.0); Immature Granulocytes % 0.3 %; Immature Granulocytes Absolute 0.02 #; Lymphocytes # 1.1 10*3/uL (1.4-4.0); Lymphocytes % 16.2 % (21.3-54.2); Mean Corpuscular HGB Conc 32.7 GM/DL (32-36); Mean Corpuscular Hemoglobin 30 PG (27-34); Mean Platelet Volume 12.4 FL (9.6-12.0); Monocytes # 0.7 10*3/uL (0.11-0.8); Neutrophils # 4.6 10*3/uL (1.4-7.4); Neutrophils % 70.4 % (38.7-73.9); Platelet Count 123 T/CUMM (130-400); Red Cell Distribution Width 14.4 % (9.3-17.3); White Blood Count 6.5 T/CUMM (4-12)
[2017-12-12] MEDS: ACETAMINOPHEN 325 MG TABLET PO PRN ×2 (06:10→10:39)
[2017-12-12 06:16] LABS: Risk Ratio 1.97; VLDL CHOLESTEROL 5.8 MG/DL
[2017-12-12 07:10] LABS: Calcium 7.8 MG/DL (8.5-10.1); Osmolality,Calculated 280.5 MOS/KG (273-304)
[2017-12-12] MEDS ORDERED: LIRAGLUTIDE 1.8 MG SUBCUT SCH (09:00)
[2017-12-12] MEDS ORDERED: ASPIRIN EC 81 MG TABLET PO SCH (09:00)
[2017-12-12 09:01] LABS: INR 4.5
[2017-12-12 09:02] LABS: PT Patient Result 44.6 SECS
[2017-12-12 09:22] LABS: Calcium 8.7 MG/DL (8.5-10.1); Osmolality,Calculated 287.5 MOS/KG (273-304); Potassium 4.4 MMOL/L (3.5-5.1)
[2017-12-12] MEDS ORDERED: INSULIN LISPRO 100 UNIT/ML SUBCUT SCH (09:30)
[2017-12-12] MEDS: FLECAINIDE 50 MG TABLET PO SCH ×2 (09:42→21:46)
[2017-12-12] MEDS: ASPIRIN EC 325 MG TABLET PO SCH (09:43)
[2017-12-12] MEDS: PANTOPRAZOLE 40 MG TABLET PO SCH (09:43)
[2017-12-12] MEDS ORDERED: SODIUM CHLORIDE 0.9% 1,000 ML IV PRN (12:11)
[2017-12-12] MEDS: INSULIN REGULAR DRIP 100 ML IV SCH (12:56)
[2017-12-12 13:19] LABS: Basophils # 0.1 10*3/uL (0.0-0.2); Basophils % 0.7 % (0.0-0.8); Eosinophils # 0.2 10*3/uL (0.0-0.87); Eosinophils % 2.5 % (0.00-10.9); Hematocrit 38.6 VOL% (35.7-47.0); Hemoglobin 12.8 GM/DL (12.0-16.0); Immature Granulocytes % 0.3 %; Immature Granulocytes Absolute 0.03 #; Lymphocytes # 1.4 10*3/uL (1.4-4.0); Lymphocytes % 14.6 % (21.3-54.2); Mean Corpuscular HGB Conc 33.2 GM/DL (32-36); Mean Corpuscular Hemoglobin 31 PG (27-34); Mean Corpuscular Volume 92.3 FL (87-102); Mean Platelet Volume 12.4 FL (9.6-12.0); Monocytes # 0.7 10*3/uL (0.11-0.8); Monocytes % 7.4 % (1.7-12.7); Neutrophils # 7.2 10*3/uL (1.4-7.4); Neutrophils % 74.5 % (38.7-73.9); Platelet Count 190 T/CUMM (130-400); Red Blood Count 4.18 MC/CUMM (3.8-5.5); Red Cell Distribution Width 14.5 % (9.3-17.3); White Blood Count 9.7 T/CUMM (4-12)
[2017-12-12] MEDS: ONDANSETRON 4 MG/2 ML VIAL IV PRN (13:40)
[2017-12-12] MEDS: GABAPENTIN 100 MG CAPSULE PO SCH (21:46)
[2017-12-12] MEDS: ATORVASTATIN 40 MG TABLET PO SCH (21:47)
[2017-12-12] MEDS: MONTELUKAST 10 MG TABLET PO SCH (21:47)
[2017-12-12] MEDS: DULoxetine 30 MG CAPSULE PO SCH (21:47)
[2017-12-13] MEDS: SODIUM CHLORIDE 0.45% 1,000 ML IV SCH ×3 (03:29→08:33)
[2017-12-13 05:18] LABS: Basophils # 0.1 10*3/uL (0.0-0.2); Basophils % 0.6 % (0.0-0.8); Eosinophils # 0.4 10*3/uL (0.0-0.87); Eosinophils % 4.6 % (0.00-10.9); Hematocrit 37.6 VOL% (35.7-47.0); Immature Granulocytes % 0.5 %; Immature Granulocytes Absolute 0.04 #; Lymphocytes % 11.2 % (21.3-54.2); Mean Corpuscular HGB Conc 31.9 GM/DL (32-36); Mean Corpuscular Hemoglobin 30 PG (27-34); Mean Corpuscular Volume 93.1 FL (87-102); Monocytes # 0.7 10*3/uL (0.11-0.8); Monocytes % 7.9 % (1.7-12.7); Neutrophils # 6.5 10*3/uL (1.4-7.4); Neutrophils % 75.2 % (38.7-73.9); Platelet Count 169 T/CUMM (130-400); Red Blood Count 4.04 MC/CUMM (3.8-5.5); Red Cell Distribution Width 14.3 % (9.3-17.3); White Blood Count 8.7 T/CUMM (4-12)
[2017-12-13 05:44] LABS: PT Patient Result 58.1 SECS
[2017-12-13 05:45] LABS: INR 5.9
[2017-12-13 05:54] LABS: Calcium 8.2 MG/DL (8.5-10.1); Osmolality,Calculated 290.1 MOS/KG (273-304); Potassium 4.3 MMOL/L (3.5-5.1)
[2017-12-13] MEDS: MEROPENEM 1,000 MG in SYRINGE 1 EACH IV SCH ×2 (08:39→20:59)
[2017-12-13] MEDS: ONDANSETRON 4 MG/2 ML VIAL IV PRN (08:39)
[2017-12-13] MEDS: ASPIRIN EC 325 MG TABLET PO SCH (08:40)
[2017-12-13] MEDS: FLECAINIDE 50 MG TABLET PO SCH ×2 (08:40→21:00)
[2017-12-13] MEDS: PANTOPRAZOLE 40 MG TABLET PO SCH (08:40)
[2017-12-13] MEDS: FUROSEMIDE 80 MG TABLET PO SCH (14:31)
[2017-12-13] MEDS ORDERED: FUROSEMIDE 80 MG TABLET PO SCH ×2 (16:00)
[2017-12-13] MEDS ORDERED: WARFARIN 5 MG TABLET PO SCH (18:00)
[2017-12-13] MEDS ORDERED: METOPROLOL SUCCINATE XL 100 MG TABLET PO SCH (21:00)
[2017-12-13] MEDS: ATORVASTATIN 40 MG TABLET PO SCH (21:00)
[2017-12-13] MEDS: DULoxetine 30 MG CAPSULE PO SCH (21:00)
[2017-12-13] MEDS: GABAPENTIN 100 MG CAPSULE PO SCH (21:00)
[2017-12-13] MEDS: MONTELUKAST 10 MG TABLET PO SCH (21:00)
[2017-12-14 04:20] LABS: Basophils % 0.5 % (0.0-0.8); Eosinophils # 0.3 10*3/uL (0.0-0.87); Eosinophils % 3.3 % (0.00-10.9); Hematocrit 36.8 VOL% (35.7-47.0); Hemoglobin 11.9 GM/DL (12.0-16.0); Immature Granulocytes % 0.3 %; Immature Granulocytes Absolute 0.03 #; Lymphocytes # 0.9 10*3/uL (1.4-4.0); Lymphocytes % 10.2 % (21.3-54.2); Mean Corpuscular HGB Conc 32.3 GM/DL (32-36); Mean Corpuscular Hemoglobin 30 PG (27-34); Mean Corpuscular Volume 91.8 FL (87-102); Mean Platelet Volume 11.8 FL (9.6-12.0); Monocytes # 0.8 10*3/uL (0.11-0.8); Monocytes % 8.9 % (1.7-12.7); Neutrophils # 6.7 10*3/uL (1.4-7.4); Neutrophils % 76.8 % (38.7-73.9); Platelet Count 176 T/CUMM (130-400); Red Blood Count 4.01 MC/CUMM (3.8-5.5); Red Cell Distribution Width 14.2 % (9.3-17.3); White Blood Count 8.8 T/CUMM (4-12)
[2017-12-14 04:54] LABS: Calcium 8.2 MG/DL (8.5-10.1); Potassium 3.9 MMOL/L (3.5-5.1)
[2017-12-14 05:32] LABS: INR 3.2
[2017-12-14 05:43] LABS: PT Patient Result 32.2 SECS
[2017-12-14] MEDS ORDERED: MAGNESIUM SULF RIDER 2 GM in PREMIX 1 EACH IV ONE (08:10)
[2017-12-14] MEDS: FUROSEMIDE 80 MG TABLET PO SCH ×2 (08:48→16:04)
[2017-12-14] MEDS: FLECAINIDE 50 MG TABLET PO SCH (08:49)
[2017-12-14] MEDS: PANTOPRAZOLE 40 MG TABLET PO SCH (08:49)
[2017-12-14] MEDS: ASPIRIN EC 325 MG TABLET PO SCH (08:49)
[2017-12-14] MEDS: MEROPENEM 1,000 MG in SYRINGE 1 EACH IV SCH (08:54)
[2017-12-14] MEDS ORDERED: SULFAMETHOX/TRIMETHOPRIM 800-160 MG TABLET PO SCH (10:30)
[2017-12-14 17:22] VITALS: BP 157/91
== END 2017-12-14 17:10 | disposition home or self-care (01) | DRG 308 ==
LOC: N.ED 04:48 → SUATTDRO 09:14 → N.EDINP 09:14 → N.ICU 10:05
PROVIDERS: ADMIT Internal Medicine; ATTEND Internal Medicine

== ENCOUNTER 2018-01-27 12:14 | Observation (INO) ==
[2018-01-29 12:40] VITALS: BP 116/67
== END 2018-01-29 16:30 | disposition home or self-care (01) ==
LOC: EDUNIT# → EDBD → N.EDINP 12:14 → N.ED 12:14 → N.2W 14:04 → N.TELEN 15:37
PROVIDERS: ADMIT Internal Medicine Cardiovascular Disease; ATTEND Internal Medicine Cardiovascular Disease

== ENCOUNTER 2018-08-04 16:37 | Inpatient (IN) ==
[2018-08-04] MEDS ORDERED: DILTIAZEM 50 MG/10 ML VIAL IV STA (17:22)
[2018-08-04] MEDS ORDERED: FUROSEMIDE 40 MG/4 ML VIAL IV STA (17:22)
[2018-08-04] MEDS ORDERED: ASPIRIN 325 MG TABLET PO STA (17:22)
[2018-08-04] MEDS ORDERED: DILTIAZEM 25 MG/5 ML VIAL IV STA (18:42)
[2018-08-04 19:01] LABS: Basophils # 0.1 10*3/uL (0.0-0.2); Basophils % 0.8 % (0.0-0.8); Eosinophils # 0.2 10*3/uL (0.0-0.87); Hematocrit 39.9 VOL% (35.7-47.0); Hemoglobin 12.4 GM/DL (12.0-16.0); Immature Granulocytes % 0.7 %; Immature Granulocytes Absolute 0.05 #; Lymphocytes % 14.6 % (21.3-54.2); Mean Corpuscular HGB Conc 31.1 GM/DL (32-36); Mean Corpuscular Hemoglobin 29 PG (27-34); Mean Corpuscular Volume 92.1 FL (87-102); Mean Platelet Volume 11.3 FL (9.6-12.0); Monocytes # 0.5 10*3/uL (0.11-0.8); Monocytes % 7.4 % (1.7-12.7); Neutrophils # 5.2 10*3/uL (1.4-7.4); Neutrophils % 73.5 % (38.7-73.9); Platelet Count 196 T/CUMM (130-400); Red Blood Count 4.33 MC/CUMM (3.8-5.5); Red Cell Distribution Width 15.5 % (9.3-17.3); White Blood Count 7.1 T/CUMM (4-12)
[2018-08-04] MEDS ORDERED: diphenhydrAMINE 50 MG/1 ML VIAL IV STA (19:13)
[2018-08-04] MEDS ORDERED: methylPREDNISolone SOD SUC 125 MG/2 ML VIAL IV STA (19:13)
[2018-08-04] MEDS ORDERED: DIGOXIN 0.5 MG/2 ML AMP IV STA (19:15)
[2018-08-04 19:22] LABS: INR 1.9; PT Patient Result 20.2 SECS
[2018-08-04 19:37] LABS: Bilirubin,Total 0.9 MG/DL (0.2-1.0); Calcium 8.4 MG/DL (8.5-10.1); Osmolality,Calculated 287.5 MOS/KG (273-304); Potassium 4.9 MMOL/L (3.5-5.1); Total Protein 6.2 G/DL (6.4-8.3)
[2018-08-04] MEDS ORDERED: INSULIN REGULAR 100 UNIT/ML SUBCUT STA (20:05)
[2018-08-04] MEDS ORDERED: ONDANSETRON 4 MG TABLET PO PRN (20:31)
[2018-08-04] MEDS ORDERED: NON-FORMULARY MEDICATION (Duloxetine Hcl [Cymbalta] 60 MG) PO SCH (21:00)
[2018-08-04] MEDS ORDERED: SOTALOL 80 MG TABLET PO SCH (21:00)
[2018-08-04] MEDS ORDERED: GLUCAGON 1 MG VIAL IM PRN ×2 (21:09)
[2018-08-04] MEDS ORDERED: DEXTROSE 50% 25 GM/50 ML SYRINGE IV PRN (21:09)
[2018-08-04] MEDS ORDERED: DEXTROSE 50% 25 GM/50 ML VIAL IV PRN (21:09)
[2018-08-04] MEDS: DULoxetine 30 MG CAPSULE PO SCH (22:26)
[2018-08-04] MEDS: LOSARTAN 25 MG TABLET PO SCH (22:27)
[2018-08-04] MEDS: METHENAMINE HIPPURATE 1 GM TABLET PO SCH (22:27)
[2018-08-04] MEDS: ATORVASTATIN 40 MG TABLET PO SCH (22:28)
[2018-08-04] MEDS: GABAPENTIN 100 MG CAPSULE PO SCH (22:29)
[2018-08-04] MEDS: MONTELUKAST 10 MG TABLET PO SCH (22:29)
[2018-08-04] MEDS: METOPROLOL SUCCINATE XL 100 MG TABLET PO SCH (22:29)
[2018-08-04] MEDS: WARFARIN 5 MG TABLET PO SCH (23:05)
[2018-08-05 05:25] LABS: Basophils % 0.2 % (0.0-0.8); Hematocrit 41.5 VOL% (35.7-47.0); Hemoglobin 12.9 GM/DL (12.0-16.0); Immature Granulocytes % 0.5 %; Immature Granulocytes Absolute 0.03 #; Lymphocytes # 0.3 10*3/uL (1.4-4.0); Lymphocytes % 4.9 % (21.3-54.2); Mean Corpuscular HGB Conc 31.1 GM/DL (32-36); Mean Corpuscular Hemoglobin 28 PG (27-34); Mean Platelet Volume 11.8 FL (9.6-12.0); Monocytes # 0.1 10*3/uL (0.11-0.8); Monocytes % 1.4 % (1.7-12.7); Neutrophils # 5.5 10*3/uL (1.4-7.4); Platelet Count 210 T/CUMM (130-400); Red Blood Count 4.56 MC/CUMM (3.8-5.5); Red Cell Distribution Width 15.3 % (9.3-17.3); White Blood Count 5.9 T/CUMM (4-12)
[2018-08-05 05:51] LABS: Calcium 9.3 MG/DL (8.5-10.1); Potassium 5.1 MMOL/L (3.5-5.1); Risk Ratio 2.38; Thyroid Stimulating Hormone 0.566 uIU/ml (0.358-3.74); VLDL CHOLESTEROL 13.2 MG/DL
[2018-08-05 05:53] LABS: Lymphocytes 5 % (20-55); Platelet Estimate Normal; Polychromasia Few; Segmented Neutrophils 95 % (50-85); Total Cells Counted 100
[2018-08-05] MEDS ORDERED: METOPROLOL TARTRATE 5 MG/5 ML VIAL IV ONE (05:59)
[2018-08-05] MEDS ORDERED: INSULIN REGULAR 100 UNIT/ML SUBCUT SCH ×3 (07:30→08:39)
[2018-08-05] MEDS ORDERED: FUROSEMIDE 40 MG/4 ML VIAL ONE (07:47)
[2018-08-05] MEDS ORDERED: GLUCAGON 1 MG VIAL IM PRN ×4 (08:34→10:44)
[2018-08-05] MEDS ORDERED: DEXTROSE 50% 25 GM/50 ML VIAL IV PRN ×3 (08:34→10:44)
[2018-08-05] MEDS ORDERED: DEXTROSE 50% 25 GM/50 ML SYRINGE IV PRN (08:38)
[2018-08-05] MEDS: METHENAMINE HIPPURATE 1 GM TABLET PO SCH ×2 (08:44→22:18)
[2018-08-05] MEDS: METOPROLOL SUCCINATE XL 100 MG TABLET PO SCH ×2 (08:45→22:20)
[2018-08-05] MEDS: PANTOPRAZOLE 40 MG TABLET PO SCH (08:45)
[2018-08-05] MEDS ORDERED: FUROSEMIDE 40 MG/4 ML VIAL IV SCH (09:00)
[2018-08-05] MEDS ORDERED: ONDANSETRON 4 MG/2 ML VIAL ONE (09:13)
[2018-08-05 10:10] LABS: Troponin I < 0.015 NG/ML (0.00-0.045)
[2018-08-05] MEDS: INSULIN REGULAR 100 UNIT/ML SUBCUT SCH ×4 (11:24→21:00)
[2018-08-05] MEDS: METOCLOPRAMIDE 10 MG/10 ML UDCUP PO SCH ×3 (11:25→22:16)
[2018-08-05] MEDS: SOTALOL 80 MG TABLET PO SCH ×2 (11:25→22:18)
[2018-08-05] MEDS ORDERED: FUROSEMIDE 40 MG/4 ML VIAL IV ONE (19:48)
[2018-08-05] MEDS: ALBUTEROL/IPRATROPIUM 3 ML NEB RESP TX PRN (19:55)
[2018-08-05 20:22] LABS: INR 1.5; PT Patient Result 15.8 SECS
[2018-08-05] MEDS ORDERED: FUROSEMIDE 80 MG TABLET PO SCH (21:00)
[2018-08-05] MEDS: MONTELUKAST 10 MG TABLET PO SCH (22:17)
[2018-08-05] MEDS: DULoxetine 30 MG CAPSULE PO SCH (22:18)
[2018-08-05] MEDS: WARFARIN 4 MG TABLET PO SCH (22:19)
[2018-08-05] MEDS: GABAPENTIN 100 MG CAPSULE PO SCH (22:19)
[2018-08-05] MEDS: ATORVASTATIN 40 MG TABLET PO SCH (22:19)
[2018-08-05] MEDS: LOSARTAN 25 MG TABLET PO SCH (22:19)
[2018-08-06 07:09] LABS: Basophils # 0.1 10*3/uL (0.0-0.2); Basophils % 0.5 % (0.0-0.8); Eosinophils # 0.2 10*3/uL (0.0-0.87); Eosinophils % 2.1 % (0.00-10.9); Hematocrit 38.6 VOL% (35.7-47.0); Hemoglobin 12.2 GM/DL (12.0-16.0); Immature Granulocytes % 0.4 %; Immature Granulocytes Absolute 0.04 #; Lymphocytes # 1.2 10*3/uL (1.4-4.0); Mean Corpuscular HGB Conc 31.6 GM/DL (32-36); Mean Corpuscular Hemoglobin 29 PG (27-34); Mean Corpuscular Volume 90.6 FL (87-102); Mean Platelet Volume 11.7 FL (9.6-12.0); Monocytes # 0.6 10*3/uL (0.11-0.8); Monocytes % 5.7 % (1.7-12.7); Neutrophils # 8.6 10*3/uL (1.4-7.4); Neutrophils % 80.3 % (38.7-73.9); Platelet Count 204 T/CUMM (130-400); Red Blood Count 4.26 MC/CUMM (3.8-5.5); Red Cell Distribution Width 15.5 % (9.3-17.3); White Blood Count 10.7 T/CUMM (4-12)
[2018-08-06 07:27] LABS: Calcium 8.9 MG/DL (8.5-10.1); Osmolality,Calculated 294.7 MOS/KG (273-304); Potassium 4.2 MMOL/L (3.5-5.1)
[2018-08-06] MEDS: METOCLOPRAMIDE 10 MG/10 ML UDCUP PO SCH ×4 (07:31→21:06)
[2018-08-06] MEDS ORDERED: SODIUM CHLORIDE 0.9% 1,000 ML IV SCH (08:30)
[2018-08-06] MEDS: ALBUTEROL/IPRATROPIUM 3 ML NEB RESP TX PRN (08:38)
[2018-08-06 08:57] LABS: INR 1.8; PT Patient Result 19.2 SECS
[2018-08-06] MEDS: PANTOPRAZOLE 40 MG TABLET PO SCH (09:38)
[2018-08-06] MEDS: INSULIN REGULAR 100 UNIT/ML SUBCUT SCH ×4 (09:39→21:05)
[2018-08-06] MEDS: SOTALOL 80 MG TABLET PO SCH ×2 (09:39→21:06)
[2018-08-06] MEDS: METHENAMINE HIPPURATE 1 GM TABLET PO SCH ×2 (09:43→21:07)
[2018-08-06] MEDS: methylPREDNISolone SOD SUC 40 MG/1 ML VIAL IV SCH ×3 (10:59→21:05)
[2018-08-06] MEDS: DULoxetine 30 MG CAPSULE PO SCH (21:06)
[2018-08-06] MEDS: MONTELUKAST 10 MG TABLET PO SCH (21:07)
[2018-08-06] MEDS: ATORVASTATIN 40 MG TABLET PO SCH (21:07)
[2018-08-06] MEDS: WARFARIN 4 MG TABLET PO SCH (21:08)
[2018-08-06] MEDS: METOPROLOL SUCCINATE XL 100 MG TABLET PO SCH (21:08)
[2018-08-06] MEDS: GABAPENTIN 100 MG CAPSULE PO SCH (21:08)
[2018-08-07] MEDS: methylPREDNISolone SOD SUC 40 MG/1 ML VIAL IV SCH ×4 (04:00→20:56)
[2018-08-07 04:08] LABS: Basophils % 0.1 % (0.0-0.8); Hematocrit 39.6 VOL% (35.7-47.0); Hemoglobin 12.4 GM/DL (12.0-16.0); Immature Granulocytes % 0.6 %; Immature Granulocytes Absolute 0.06 #; Lymphocytes # 0.4 10*3/uL (1.4-4.0); Lymphocytes % 3.9 % (21.3-54.2); Mean Corpuscular HGB Conc 31.3 GM/DL (32-36); Mean Corpuscular Hemoglobin 28 PG (27-34); Mean Corpuscular Volume 90.4 FL (87-102); Mean Platelet Volume 11.9 FL (9.6-12.0); Monocytes # 0.1 10*3/uL (0.11-0.8); Monocytes % 1.1 % (1.7-12.7); Neutrophils # 8.8 10*3/uL (1.4-7.4); Neutrophils % 94.3 % (38.7-73.9); Platelet Count 211 T/CUMM (130-400); Red Blood Count 4.38 MC/CUMM (3.8-5.5); Red Cell Distribution Width 15.1 % (9.3-17.3); White Blood Count 9.3 T/CUMM (4-12)
[2018-08-07 04:38] LABS: Osmolality,Calculated 288.7 MOS/KG (273-304)
[2018-08-07 04:47] LABS: Lymphocytes 4 % (20-55); Platelet Estimate Adequate; Polychromasia Few; Segmented Neutrophils 95 % (50-85); Total Cells Counted 100
[2018-08-07] MEDS: INSULIN REGULAR 100 UNIT/ML SUBCUT SCH ×4 (08:42→20:55)
[2018-08-07] MEDS: METOCLOPRAMIDE 10 MG/10 ML UDCUP PO SCH ×4 (08:43→21:21)
[2018-08-07] MEDS: PANTOPRAZOLE 40 MG TABLET PO SCH (08:44)
[2018-08-07] MEDS: METHENAMINE HIPPURATE 1 GM TABLET PO SCH ×2 (08:44→20:55)
[2018-08-07] MEDS: SOTALOL 80 MG TABLET PO SCH ×2 (08:44→20:55)
[2018-08-07] MEDS: AZITHROMYCIN 250 MG TABLET PO SCH (11:10)
[2018-08-07] MEDS: ALBUTEROL/IPRATROPIUM 3 ML NEB RESP TX SCH ×2 (13:08→19:21)
[2018-08-07] MEDS: DULoxetine 30 MG CAPSULE PO SCH (20:55)
[2018-08-07] MEDS: MONTELUKAST 10 MG TABLET PO SCH (20:55)
[2018-08-07] MEDS: ATORVASTATIN 40 MG TABLET PO SCH (20:55)
[2018-08-07] MEDS: METOPROLOL SUCCINATE XL 100 MG TABLET PO SCH (20:55)
[2018-08-07] MEDS: GABAPENTIN 100 MG CAPSULE PO SCH (20:55)
[2018-08-08] MEDS: ALBUTEROL/IPRATROPIUM 3 ML NEB RESP TX SCH ×4 (00:01→19:35)
[2018-08-08] MEDS: methylPREDNISolone SOD SUC 40 MG/1 ML VIAL IV SCH ×2 (02:19→08:44)
[2018-08-08 04:33] LABS: Basophils % 0.1 % (0.0-0.8); Hematocrit 39.2 VOL% (35.7-47.0); Hemoglobin 12.2 GM/DL (12.0-16.0); Immature Granulocytes % 0.5 %; Immature Granulocytes Absolute 0.06 #; Lymphocytes # 0.4 10*3/uL (1.4-4.0); Lymphocytes % 2.9 % (21.3-54.2); Mean Corpuscular HGB Conc 31.1 GM/DL (32-36); Mean Corpuscular Hemoglobin 28 PG (27-34); Monocytes # 0.4 10*3/uL (0.11-0.8); Monocytes % 3.1 % (1.7-12.7); Neutrophils # 12.2 10*3/uL (1.4-7.4); Neutrophils % 93.4 % (38.7-73.9); Platelet Count 205 T/CUMM (130-400); Red Blood Count 4.31 MC/CUMM (3.8-5.5); Red Cell Distribution Width 15.1 % (9.3-17.3)
[2018-08-08 04:46] LABS: Calcium 8.9 MG/DL (8.5-10.1); Osmolality,Calculated 291.5 MOS/KG (273-304); Potassium 4.7 MMOL/L (3.5-5.1)
[2018-08-08 05:06] LABS: INR 4.1
[2018-08-08 05:14] LABS: PT Patient Result 44.5 SECS
[2018-08-08 07:21] LABS: Band Neutrophils 16 % (0-10); Lymphocytes 2 % (20-55); Platelet Estimate Normal; Segmented Neutrophils 80 % (50-85); Total Cells Counted 100
[2018-08-08 07:22] LABS: Anisocytosis 1+
[2018-08-08] MEDS: INSULIN REGULAR 100 UNIT/ML SUBCUT SCH ×5 (08:42→21:32)
[2018-08-08] MEDS: FUROSEMIDE 40 MG/4 ML VIAL IV SCH ×2 (08:44→15:54)
[2018-08-08] MEDS: METHENAMINE HIPPURATE 1 GM TABLET PO SCH ×2 (08:45→21:32)
[2018-08-08] MEDS: AZITHROMYCIN 250 MG TABLET PO SCH (08:45)
[2018-08-08] MEDS: PANTOPRAZOLE 40 MG TABLET PO SCH (08:46)
[2018-08-08] MEDS: METOCLOPRAMIDE 10 MG/10 ML UDCUP PO SCH ×3 (08:46→21:33)
[2018-08-08] MEDS: SOTALOL 80 MG TABLET PO SCH ×2 (08:46→21:32)
[2018-08-08] MEDS: BENZONATATE 100 MG CAPSULE PO SCH ×2 (15:53→21:32)
[2018-08-08] MEDS: DULoxetine 30 MG CAPSULE PO SCH (21:31)
[2018-08-08] MEDS: ATORVASTATIN 40 MG TABLET PO SCH (21:32)
[2018-08-08] MEDS: GABAPENTIN 100 MG CAPSULE PO SCH (21:32)
[2018-08-08] MEDS: MONTELUKAST 10 MG TABLET PO SCH (21:32)
[2018-08-08] MEDS: METOPROLOL SUCCINATE XL 100 MG TABLET PO SCH (21:33)
[2018-08-08] MEDS: BUDESONIDE/FORMOTEROL 160-4.5 INHALER 6 GM INH SCH (21:37)
[2018-08-09] MEDS: ALBUTEROL/IPRATROPIUM 3 ML NEB RESP TX SCH ×4 (01:41→19:01)
[2018-08-09 04:28] LABS: Basophils % 0.1 % (0.0-0.8); Eosinophils % 0.1 % (0.00-10.9); Hematocrit 42.9 VOL% (35.7-47.0); Hemoglobin 13.7 GM/DL (12.0-16.0); Immature Granulocytes % 0.3 %; Immature Granulocytes Absolute 0.04 #; Lymphocytes # 1.6 10*3/uL (1.4-4.0); Lymphocytes % 13.4 % (21.3-54.2); Mean Corpuscular HGB Conc 31.9 GM/DL (32-36); Mean Corpuscular Hemoglobin 29 PG (27-34); Mean Corpuscular Volume 89.7 FL (87-102); Mean Platelet Volume 11.7 FL (9.6-12.0); Monocytes # 1.1 10*3/uL (0.11-0.8); Monocytes % 9.7 % (1.7-12.7); Neutrophils % 76.4 % (38.7-73.9); Platelet Count 217 T/CUMM (130-400); Red Blood Count 4.78 MC/CUMM (3.8-5.5); Red Cell Distribution Width 15.1 % (9.3-17.3); White Blood Count 11.8 T/CUMM (4-12)
[2018-08-09 04:34] LABS: INR 2.9; PT Patient Result 31.5 SECS
[2018-08-09 04:46] LABS: Osmolality,Calculated 283.1 MOS/KG (273-304); Potassium 3.3 MMOL/L (3.5-5.1)
[2018-08-09] MEDS ORDERED: MAGNESIUM SULF RIDER 4 GM in PREMIX 1 EACH IV ONE (07:42)
[2018-08-09] MEDS ORDERED: POTASSIUM CHLORIDE 20 MEQ TABLET PO ONE (07:42)
[2018-08-09] MEDS: METOCLOPRAMIDE 10 MG/10 ML UDCUP PO SCH ×5 (07:43→21:42)
[2018-08-09] MEDS ORDERED: PHYTONADIONE 10 MG/1 ML AMP IV SCH (09:00)
[2018-08-09] MEDS ORDERED: DIGOXIN 0.5 MG/2 ML AMP IV ONE (09:32)
[2018-08-09] MEDS: FUROSEMIDE 40 MG/4 ML VIAL IV SCH ×2 (09:40→17:16)
[2018-08-09] MEDS: INSULIN REGULAR 100 UNIT/ML SUBCUT SCH ×4 (09:43→21:42)
[2018-08-09] MEDS: PANTOPRAZOLE 40 MG TABLET PO SCH (09:43)
[2018-08-09] MEDS: AZITHROMYCIN 250 MG TABLET PO SCH (09:43)
[2018-08-09] MEDS: BENZONATATE 100 MG CAPSULE PO SCH ×3 (09:43→21:43)
[2018-08-09] MEDS: METHENAMINE HIPPURATE 1 GM TABLET PO SCH ×2 (09:43→21:43)
[2018-08-09] MEDS: BUDESONIDE/FORMOTEROL 160-4.5 INHALER 6 GM INH SCH ×2 (09:44→21:44)
[2018-08-09] MEDS: methylPREDNISolone SOD SUC 40 MG/1 ML VIAL IV SCH (09:44)
[2018-08-09] MEDS ORDERED: SODIUM CHLORIDE 0.9% 250 ML IV ONE (09:50)
[2018-08-09] MEDS: ACETAMINOPHEN 500 MG TABLET PO PRN ×2 (14:20→21:51)
[2018-08-09] MEDS: SOTALOL 80 MG TABLET PO SCH ×2 (14:32→21:43)
[2018-08-09] MEDS: DULoxetine 30 MG CAPSULE PO SCH (21:43)
[2018-08-09] MEDS: MONTELUKAST 10 MG TABLET PO SCH (21:43)
[2018-08-09] MEDS: GABAPENTIN 100 MG CAPSULE PO SCH (21:43)
[2018-08-09] MEDS: ATORVASTATIN 40 MG TABLET PO SCH (21:43)
[2018-08-09] MEDS: METOPROLOL SUCCINATE XL 100 MG TABLET PO SCH (21:44)
[2018-08-10] MEDS: ALBUTEROL/IPRATROPIUM 3 ML NEB RESP TX SCH ×4 (00:16→19:15)
[2018-08-10 03:42] LABS: Basophils % 0.1 % (0.0-0.8); Eosinophils # 0.3 10*3/uL (0.0-0.87); Eosinophils % 3.5 % (0.00-10.9); Hematocrit 45.3 VOL% (35.7-47.0); Hemoglobin 14.2 GM/DL (12.0-16.0); Immature Granulocytes % 0.6 %; Immature Granulocytes Absolute 0.05 #; Lymphocytes # 1.5 10*3/uL (1.4-4.0); Lymphocytes % 17.2 % (21.3-54.2); Mean Corpuscular HGB Conc 31.3 GM/DL (32-36); Mean Corpuscular Hemoglobin 28 PG (27-34); Mean Corpuscular Volume 89.7 FL (87-102); Mean Platelet Volume 11.7 FL (9.6-12.0); Monocytes # 0.8 10*3/uL (0.11-0.8); Monocytes % 9.4 % (1.7-12.7); Neutrophils # 6.1 10*3/uL (1.4-7.4); Neutrophils % 69.2 % (38.7-73.9); Platelet Count 223 T/CUMM (130-400); Red Blood Count 5.05 MC/CUMM (3.8-5.5); Red Cell Distribution Width 15.3 % (9.3-17.3); White Blood Count 8.8 T/CUMM (4-12)
[2018-08-10 03:48] LABS: INR 1.3; PT Patient Result 14.5 SECS
[2018-08-10 04:02] LABS: Calcium 8.4 MG/DL (8.5-10.1); Osmolality,Calculated 287.1 MOS/KG (273-304); Potassium 3.4 MMOL/L (3.5-5.1)
[2018-08-10] MEDS: INSULIN REGULAR 100 UNIT/ML SUBCUT SCH ×4 (07:20→21:03)
[2018-08-10] MEDS: METOCLOPRAMIDE 10 MG/10 ML UDCUP PO SCH ×4 (07:20→21:03)
[2018-08-10] MEDS: WARFARIN 4 MG TABLET PO SCH ×2 (08:26→11:55)
[2018-08-10] MEDS ORDERED: MIDAZOLAM 10 MG/2 ML VIAL ONE (08:39)
[2018-08-10] MEDS ORDERED: MIDAZOLAM 2 MG/2 ML VIAL IV ONE ×2 (08:46→08:48)
[2018-08-10] MEDS: FUROSEMIDE 40 MG/4 ML VIAL IV SCH ×2 (11:04→16:16)
[2018-08-10] MEDS: methylPREDNISolone SOD SUC 40 MG/1 ML VIAL IV SCH (11:04)
[2018-08-10] MEDS: BENZONATATE 100 MG CAPSULE PO SCH ×3 (12:27→21:04)
[2018-08-10] MEDS: SOTALOL 80 MG TABLET PO SCH ×2 (13:19→21:04)
[2018-08-10] MEDS: METHENAMINE HIPPURATE 1 GM TABLET PO SCH ×2 (13:19→21:04)
[2018-08-10] MEDS: AZITHROMYCIN 250 MG TABLET PO SCH (13:20)
[2018-08-10] MEDS: PANTOPRAZOLE 40 MG TABLET PO SCH (13:20)
[2018-08-10] MEDS: BUDESONIDE/FORMOTEROL 160-4.5 INHALER 6 GM INH SCH ×2 (13:20→21:04)
[2018-08-10] MEDS: ONDANSETRON 4 MG/2 ML VIAL IV PRN (13:59)
[2018-08-10] MEDS: ATORVASTATIN 40 MG TABLET PO SCH (21:04)
[2018-08-10] MEDS: DULoxetine 30 MG CAPSULE PO SCH (21:04)
[2018-08-10] MEDS: GABAPENTIN 100 MG CAPSULE PO SCH (21:04)
[2018-08-10] MEDS: MONTELUKAST 10 MG TABLET PO SCH (21:04)
[2018-08-11] MEDS: ALBUTEROL/IPRATROPIUM 3 ML NEB RESP TX SCH ×4 (01:02→19:32)
[2018-08-11 05:07] LABS: INR 1.1
[2018-08-11 05:08] LABS: INR 1.1
[2018-08-11] MEDS ORDERED: POTASSIUM CHLORIDE 20 MEQ TABLET PO PRN (08:04)
[2018-08-11] MEDS ORDERED: LIDOCAINE 2% 5 ML VIAL ONE (08:30)
[2018-08-11] MEDS ORDERED: PROPOFOL 200 MG/20 ML VIAL IV ONE (08:30)
[2018-08-11] MEDS ORDERED: ETOMIDATE 20 MG/10 ML VIAL IV ONE (08:30)
[2018-08-11 08:32] LABS: Calcium 8.6 MG/DL (8.5-10.1); Osmolality,Calculated 279.7 MOS/KG (273-304); Potassium 3.9 MMOL/L (3.5-5.1)
[2018-08-11] MEDS ORDERED: FLUCONAZOLE 100 MG TABLET PO ONE (10:00)
[2018-08-11] MEDS: INSULIN REGULAR 100 UNIT/ML SUBCUT SCH ×4 (10:11→20:41)
[2018-08-11] MEDS: AZITHROMYCIN 250 MG TABLET PO SCH (10:18)
[2018-08-11] MEDS: METOCLOPRAMIDE 10 MG/10 ML UDCUP PO SCH ×4 (10:18→20:39)
[2018-08-11] MEDS: SOTALOL 80 MG TABLET PO SCH ×2 (10:19→20:40)
[2018-08-11] MEDS: BENZONATATE 100 MG CAPSULE PO SCH ×3 (10:19→20:39)
[2018-08-11] MEDS: METHENAMINE HIPPURATE 1 GM TABLET PO SCH ×2 (10:19→20:40)
[2018-08-11] MEDS: PANTOPRAZOLE 40 MG TABLET PO SCH (10:20)
[2018-08-11] MEDS: ASCORBIC ACID 500 MG TABLET PO SCH ×2 (10:20→20:40)
[2018-08-11] MEDS: FUROSEMIDE 40 MG/4 ML VIAL IV SCH ×2 (10:20→16:11)
[2018-08-11] MEDS: methylPREDNISolone SOD SUC 40 MG/1 ML VIAL IV SCH (10:21)
[2018-08-11] MEDS: BUDESONIDE/FORMOTEROL 160-4.5 INHALER 6 GM INH SCH ×2 (10:21→21:01)
[2018-08-11] MEDS: ONDANSETRON 4 MG/2 ML VIAL IV PRN (11:48)
[2018-08-11] MEDS: DULoxetine 30 MG CAPSULE PO SCH (20:39)
[2018-08-11] MEDS: ATORVASTATIN 40 MG TABLET PO SCH (20:40)
[2018-08-11] MEDS: MONTELUKAST 10 MG TABLET PO SCH (20:40)
[2018-08-11] MEDS: GABAPENTIN 100 MG CAPSULE PO SCH (20:40)
[2018-08-11] MEDS: WARFARIN 5 MG TABLET PO SCH (20:41)
[2018-08-12] MEDS: ALBUTEROL/IPRATROPIUM 3 ML NEB RESP TX SCH ×4 (01:12→19:47)
[2018-08-12 04:00] LABS: Basophils % 0.1 % (0.0-0.8); Hematocrit 41.9 VOL% (35.7-47.0); Hemoglobin 13.2 GM/DL (12.0-16.0); Immature Granulocytes % 0.5 %; Immature Granulocytes Absolute 0.06 #; Lymphocytes # 0.7 10*3/uL (1.4-4.0); Mean Corpuscular HGB Conc 31.5 GM/DL (32-36); Mean Corpuscular Hemoglobin 28 PG (27-34); Mean Corpuscular Volume 89.5 FL (87-102); Mean Platelet Volume 12.7 FL (9.6-12.0); Monocytes # 0.7 10*3/uL (0.11-0.8); Monocytes % 5.9 % (1.7-12.7); Neutrophils # 10.9 10*3/uL (1.4-7.4); Neutrophils % 87.5 % (38.7-73.9); Platelet Count 193 T/CUMM (130-400); Red Blood Count 4.68 MC/CUMM (3.8-5.5); Red Cell Distribution Width 15.2 % (9.3-17.3); White Blood Count 12.4 T/CUMM (4-12)
[2018-08-12 04:06] LABS: INR 1.1; PT Patient Result 11.7 SECS
[2018-08-12 04:27] LABS: Calcium 8.8 MG/DL (8.5-10.1); Potassium 3.9 MMOL/L (3.5-5.1)
[2018-08-12] MEDS: INSULIN REGULAR 100 UNIT/ML SUBCUT SCH ×4 (08:58→21:59)
[2018-08-12] MEDS: METOCLOPRAMIDE 10 MG/10 ML UDCUP PO SCH ×4 (09:00→21:05)
[2018-08-12] MEDS: FUROSEMIDE 40 MG/4 ML VIAL IV SCH ×2 (09:01→15:10)
[2018-08-12] MEDS: methylPREDNISolone SOD SUC 40 MG/1 ML VIAL IV SCH (09:01)
[2018-08-12] MEDS: PANTOPRAZOLE 40 MG TABLET PO SCH (09:02)
[2018-08-12] MEDS: METHENAMINE HIPPURATE 1 GM TABLET PO SCH (09:02)
[2018-08-12] MEDS: BENZONATATE 100 MG CAPSULE PO SCH ×3 (09:02→21:07)
[2018-08-12] MEDS: SOTALOL 80 MG TABLET PO SCH ×2 (09:03→21:07)
[2018-08-12] MEDS: FLUCONAZOLE 100 MG TABLET PO SCH (09:03)
[2018-08-12] MEDS: ASCORBIC ACID 500 MG TABLET PO SCH ×2 (09:03→21:06)
[2018-08-12] MEDS: BUDESONIDE/FORMOTEROL 160-4.5 INHALER 6 GM INH SCH ×2 (09:06→21:59)
[2018-08-12] MEDS: GABAPENTIN 100 MG CAPSULE PO SCH (21:06)
[2018-08-12] MEDS: WARFARIN 4 MG TABLET PO SCH (21:07)
[2018-08-12] MEDS: ATORVASTATIN 40 MG TABLET PO SCH (21:07)
[2018-08-12] MEDS: DULoxetine 30 MG CAPSULE PO SCH (21:07)
[2018-08-12] MEDS: MONTELUKAST 10 MG TABLET PO SCH (21:07)
[2018-08-12] MEDS: MAGNESIUM CHLORIDE 64 MG TABLET PO SCH (21:08)
[2018-08-13] MEDS: ALBUTEROL/IPRATROPIUM 3 ML NEB RESP TX SCH ×2 (01:06→07:53)
[2018-08-13 05:02] LABS: Basophils % 0.1 % (0.0-0.8); Hematocrit 40.4 VOL% (35.7-47.0); Hemoglobin 12.8 GM/DL (12.0-16.0); Immature Granulocytes % 0.4 %; Immature Granulocytes Absolute 0.06 #; Lymphocytes % 6.6 % (21.3-54.2); Mean Corpuscular HGB Conc 31.7 GM/DL (32-36); Mean Corpuscular Hemoglobin 28 PG (27-34); Mean Corpuscular Volume 89.4 FL (87-102); Mean Platelet Volume 12.6 FL (9.6-12.0); Monocytes % 6.6 % (1.7-12.7); Neutrophils # 12.5 10*3/uL (1.4-7.4); Neutrophils % 86.3 % (38.7-73.9); Platelet Count 200 T/CUMM (130-400); Red Blood Count 4.52 MC/CUMM (3.8-5.5); Red Cell Distribution Width 15.3 % (9.3-17.3); White Blood Count 14.4 T/CUMM (4-12)
[2018-08-13 05:15] LABS: Osmolality,Calculated 290.2 MOS/KG (273-304)
[2018-08-13] MEDS: FLUCONAZOLE 100 MG TABLET PO SCH (08:51)
[2018-08-13] MEDS: ASCORBIC ACID 500 MG TABLET PO SCH (08:51)
[2018-08-13] MEDS: BENZONATATE 100 MG CAPSULE PO SCH (08:51)
[2018-08-13] MEDS: MAGNESIUM CHLORIDE 64 MG TABLET PO SCH (08:51)
[2018-08-13] MEDS: SOTALOL 80 MG TABLET PO SCH (08:51)
[2018-08-13] MEDS: METOCLOPRAMIDE 10 MG/10 ML UDCUP PO SCH ×2 (08:52→12:02)
[2018-08-13] MEDS: BUDESONIDE/FORMOTEROL 160-4.5 INHALER 6 GM INH SCH (08:52)
[2018-08-13] MEDS: FUROSEMIDE 40 MG/4 ML VIAL IV SCH (08:52)
[2018-08-13] MEDS: INSULIN REGULAR 100 UNIT/ML SUBCUT SCH ×3 (08:52→13:20)
[2018-08-13] MEDS: PANTOPRAZOLE 40 MG TABLET PO SCH (08:52)
[2018-08-13] MEDS: methylPREDNISolone SOD SUC 40 MG/1 ML VIAL IV SCH (08:55)
[2018-08-13 12:06] VITALS: BP 120/69
== END 2018-08-13 15:37 | disposition home health service (06) | DRG 292 ==
LOC: N.EDINP 16:37 → N.ED 16:37 → SUATTDRO 20:29 → N.TELES 21:12 → SUATTDRO 08-07 14:57
PROVIDERS: ADMIT Internal Medicine; ATTEND Hospitalist

== ENCOUNTER 2019-04-16 06:32 | Inpatient (IN) ==
[2019-04-16] MEDS ORDERED: LIDOCAINE 1% 20 ML VIAL ONE (07:11)
[2019-04-16] MEDS ORDERED: HEPARIN/NACL 0.9% 2 UNITS/ML 1,500 ML IV ONE (07:11)
[2019-04-16 07:12] LABS: Basophils # 0.1 10*3/uL (0.0-0.2); Eosinophils # 0.4 10*3/uL (0.0-0.87); Eosinophils % 4.9 % (0.00-10.9); Hematocrit 45.2 VOL% (35.7-47.0); Hemoglobin 14.5 GM/DL (12.0-16.0); Immature Granulocytes % 0.4 %; Immature Granulocytes Absolute 0.03 #; Lymphocytes # 0.9 10*3/uL (1.4-4.0); Mean Corpuscular HGB Conc 32.1 GM/DL (32-36); Mean Corpuscular Volume 90.2 FL (87-102); Monocytes % 10.1 % (1.7-12.7); Neutrophils % 70.6 % (38.7-73.9); Platelet Count 271 T/CUMM (130-400); Red Blood Count 5.01 MC/CUMM (3.8-5.5); Red Cell Distribution Width 14.9 % (9.3-17.3); White Blood Count 7.1 T/CUMM (4-12)
[2019-04-16 07:19] LABS: INR 1.8; PT Patient Result 19.6 SECS (9.6-12.2)
[2019-04-16 07:29] LABS: Calcium 9.2 MG/DL (8.5-10.1); Osmolality,Calculated 292.7 MOS/KG (273-304)
[2019-04-16 08:26] LABS: Apearance,Urine CLEAR (Clear); Bacteria,Urine Moderate /HPF (Few); Bilirubin,Urine Negative (Negative); Blood, Urine Small mg/dL (Negative); Glucose,Urine (UA) >=500 mg/dL (Negative); Ketones,Urine 5 mg/dL (Negative); Mucus,Urine Occasional /LPF (Occasional); Nitrite,Urine Negative (Negative); Protein,Urine Negative; RBC,Urine 6 /HPF (0-4); Squamous Epithelial Cell,Urine Occasional /HPF (0-10); Urine Color Yellow (Yellow); Urine Specific Gravity 1.013 (1.001-1.035); Urine Urobilinogen < 2.0 EU/DL (0.2-1.0); WBC,Urine 41 /HPF (0-6)
[2019-04-16] MEDS ORDERED: HEPARIN/NACL 0.9% 2 UNITS/ML 1,000 ML IV ONE (08:42)
[2019-04-16] MEDS ORDERED: ISOPROTERENOL 1 MG/5 ML VIAL IV ONE (11:18)
[2019-04-16] MEDS ORDERED: GLUCAGON 1 MG VIAL IM PRN (12:16)
[2019-04-16] MEDS ORDERED: ASPIRIN EC 325 MG TABLET PO ONE (12:16)
[2019-04-16] MEDS ORDERED: DEXTROSE 10% 25 GM/250 ML BAG IV PRN (12:16)
[2019-04-16] MEDS ORDERED: ZALEPLON 5 MG CAPSULE PO PRN (12:16)
[2019-04-16] MEDS ORDERED: ALBUTEROL 2.5 MG/3 ML NEB RESP TX PRN (12:18)
[2019-04-16] MEDS ORDERED: WARFARIN 3 MG TABLET PO ONE (12:21)
[2019-04-16] MEDS ORDERED: INSULIN ASPART U 1 UNIT SUBCUT SCH (12:30)
[2019-04-16] MEDS ORDERED: IBUPROFEN 400 MG TABLET PO PRN (13:00)
[2019-04-16] MEDS ORDERED: INSULIN REGULAR 100 UNIT/ML ONE (13:00)
[2019-04-16] MEDS ORDERED: PHENYLEPHRINE 1 MG/10 ML SYRINGE IV ONE (13:03)
[2019-04-16] MEDS ORDERED: fentaNYL 100 MCG/2 ML VIAL ONE (13:04)
[2019-04-16] MEDS ORDERED: PROPOFOL 200 MG/20 ML VIAL IV ONE (13:04)
[2019-04-16] MEDS ORDERED: MIDAZOLAM 2 MG/2 ML VIAL ONE (13:04)
[2019-04-16] MEDS ORDERED: LIDOCAINE 2% 5 ML VIAL ONE (13:04)
[2019-04-16] MEDS ORDERED: PROTAMINE SULFATE 50 MG/5 ML VIAL IV ONE (13:09)
[2019-04-16] MEDS ORDERED: SEVOFLURANE 1 UNIT/15 MINUTE INH ONE (13:09)
[2019-04-16] MEDS ORDERED: FUROSEMIDE 20 MG/2 ML VIAL ONE (13:09)
[2019-04-16] MEDS ORDERED: PHENYLEPHRINE DRIP 20 MG/250 ML PREMIX IV ONE (13:09)
[2019-04-16] MEDS ORDERED: HEPARIN 10,000 UNIT/10 ML VIAL ONE (13:09)
[2019-04-16] MEDS ORDERED: ROCURONIUM 100 MG/10 ML VIAL IV ONE (13:09)
[2019-04-16] MEDS: KETOROLAC 30 MG/1 ML VIAL IV PRN (13:14)
[2019-04-16] MEDS ORDERED: diphenhydrAMINE CAP 25 MG CAPSULE PO PRN (13:46)
[2019-04-16] MEDS ORDERED: MAGNESIUM HYDROXIDE SUSP 30 ML UDCUP PO PRN (13:47)
[2019-04-16] MEDS ORDERED: HYDROmorphone 2 MG/1 ML VIAL IV ONE (13:56)
[2019-04-16] MEDS ORDERED: ONDANSETRON 4 MG/2 ML VIAL IV ONE (13:57)
[2019-04-16] MEDS: HydrOXYzine PAMOATE 25 MG CAPSULE PO PRN (14:21)
[2019-04-16] MEDS: METOPROLOL SUCCINATE XL 100 MG TABLET PO SCH (16:35)
[2019-04-16] MEDS: PANTOPRAZOLE 40 MG TABLET PO SCH ×2 (16:36→21:03)
[2019-04-16] MEDS: INSULIN LISPRO 100 UNIT/ML SUBCUT SCH ×2 (16:38→20:46)
[2019-04-16] MEDS: LEVOFLOXACIN 500 MG TABLET PO SCH (16:38)
[2019-04-16] MEDS: ENOXAPARIN 120 MG/0.8 ML SYRINGE SUBCUT SCH (21:02)
[2019-04-16] MEDS: GABAPENTIN 100 MG CAPSULE PO SCH (21:03)
[2019-04-16] MEDS: OXYBUTYNIN XL 10 MG TABLET PO SCH (21:03)
[2019-04-16] MEDS: METHENAMINE HIPPURATE 1 GM TABLET PO SCH (21:03)
[2019-04-16] MEDS: MONTELUKAST 10 MG TABLET PO SCH (21:04)
[2019-04-16] MEDS: MAGNESIUM CHLORIDE 64 MG TABLET PO SCH (21:04)
[2019-04-16] MEDS: DULoxetine 30 MG CAPSULE PO SCH (21:04)
[2019-04-17] MEDS: METOPROLOL SUCCINATE XL 100 MG TABLET PO SCH ×3 (00:19→21:06)
[2019-04-17] MEDS: DILTIAZEM CD 180 MG CAPSULE PO SCH ×3 (00:19→21:06)
[2019-04-17] MEDS: KETOROLAC 30 MG/1 ML VIAL IV PRN ×2 (03:23→10:04)
[2019-04-17 04:18] LABS: Basophils # 0.1 10*3/uL (0.0-0.2); Basophils % 0.8 % (0.0-0.8); Eosinophils # 0.4 10*3/uL (0.0-0.87); Eosinophils % 5.4 % (0.00-10.9); Hematocrit 41.3 VOL% (35.7-47.0); INR 2.6; Immature Granulocytes % 0.5 %; Immature Granulocytes Absolute 0.03 #; Lymphocytes # 0.9 10*3/uL (1.4-4.0); Lymphocytes % 13.9 % (21.3-54.2); Mean Corpuscular HGB Conc 31.5 GM/DL (32-36); Mean Corpuscular Volume 91.6 FL (87-102); Neutrophils % 71.4 % (38.7-73.9); Platelet Count 225 T/CUMM (130-400); Red Blood Count 4.51 MC/CUMM (3.8-5.5); Red Cell Distribution Width 15.4 % (9.3-17.3); White Blood Count 6.6 T/CUMM (4-12)
[2019-04-17 04:22] LABS: Calcium 8.5 MG/DL (8.5-10.1); Osmolality,Calculated 287.3 MOS/KG (273-304)
[2019-04-17 04:24] LABS: PT Patient Result 28.2 SECS (9.6-12.2)
[2019-04-17] MEDS: HydrOXYzine PAMOATE 25 MG CAPSULE PO PRN (07:19)
[2019-04-17] MEDS ORDERED: FUROSEMIDE 40 MG/4 ML VIAL IV ONE (07:22)
[2019-04-17] MEDS: INSULIN LISPRO 100 UNIT/ML SUBCUT SCH ×4 (08:51→22:06)
[2019-04-17] MEDS: ENOXAPARIN 120 MG/0.8 ML SYRINGE SUBCUT SCH (08:52)
[2019-04-17] MEDS: ONDANSETRON 4 MG/2 ML VIAL IV PRN (08:54)
[2019-04-17] MEDS ORDERED: WARFARIN 5 MG TABLET PO SCH ×3 (09:00→18:00)
[2019-04-17] MEDS ORDERED: FUROSEMIDE 40 MG TABLET PO SCH (09:00)
[2019-04-17] MEDS: ASPIRIN EC 81 MG TABLET PO SCH (09:40)
[2019-04-17] MEDS: MAGNESIUM CHLORIDE 64 MG TABLET PO SCH ×2 (09:40→21:58)
[2019-04-17] MEDS: GABAPENTIN 100 MG CAPSULE PO SCH ×2 (09:42→21:59)
[2019-04-17] MEDS: PANTOPRAZOLE 40 MG TABLET PO SCH ×2 (09:44→22:00)
[2019-04-17] MEDS: METHENAMINE HIPPURATE 1 GM TABLET PO SCH ×2 (09:44→21:59)
[2019-04-17] MEDS: ISOSORBIDE MONONITRATE 30 MG TABLET PO SCH (10:05)
[2019-04-17] MEDS: LEVOFLOXACIN 500 MG TABLET PO SCH (12:56)
[2019-04-17] MEDS ORDERED: methylPREDNISolone ACETATE 40 MG/1 ML VIAL MISC INJ ONE (16:11)
[2019-04-17] MEDS ORDERED: LIDOCAINE 1% 20 ML VIAL MISC INJ ONE (16:12)
[2019-04-17] MEDS: DULoxetine 30 MG CAPSULE PO SCH (21:58)
[2019-04-17] MEDS: MONTELUKAST 10 MG TABLET PO SCH (21:59)
[2019-04-17] MEDS: OXYBUTYNIN XL 10 MG TABLET PO SCH (21:59)
[2019-04-17] MEDS: BUDESONIDE/FORMOTEROL 160-4.5 INHALER 6 GM INH SCH (22:06)
[2019-04-18] MEDS: HydrOXYzine PAMOATE 25 MG CAPSULE PO PRN ×2 (03:41→20:55)
[2019-04-18] MEDS: ACETAMINOPHEN 325 MG TABLET PO PRN (03:41)
[2019-04-18 06:00] LABS: Calcium 8.6 MG/DL (8.5-10.1)
[2019-04-18 07:08] LABS: INR 5.9
[2019-04-18] MEDS: INSULIN LISPRO 100 UNIT/ML SUBCUT SCH ×5 (09:34→20:57)
[2019-04-18] MEDS: DILTIAZEM CD 180 MG CAPSULE PO SCH ×2 (09:35→20:56)
[2019-04-18] MEDS: ASPIRIN EC 81 MG TABLET PO SCH (09:35)
[2019-04-18] MEDS: METOPROLOL SUCCINATE XL 100 MG TABLET PO SCH ×2 (09:37→20:55)
[2019-04-18] MEDS: ISOSORBIDE MONONITRATE 30 MG TABLET PO SCH (09:37)
[2019-04-18] MEDS: PANTOPRAZOLE 40 MG TABLET PO SCH ×2 (09:37→20:57)
[2019-04-18] MEDS: GABAPENTIN 100 MG CAPSULE PO SCH ×2 (09:37→20:55)
[2019-04-18] MEDS: METHENAMINE HIPPURATE 1 GM TABLET PO SCH ×2 (09:37→20:56)
[2019-04-18] MEDS: MAGNESIUM CHLORIDE 64 MG TABLET PO SCH ×2 (09:38→20:55)
[2019-04-18] MEDS: BUDESONIDE/FORMOTEROL 160-4.5 INHALER 6 GM INH SCH ×2 (09:40→21:13)
[2019-04-18] MEDS: LEVOFLOXACIN 500 MG TABLET PO SCH (14:09)
[2019-04-18] MEDS: FUROSEMIDE 40 MG/4 ML VIAL IV SCH (16:21)
[2019-04-18] MEDS: DULoxetine 30 MG CAPSULE PO SCH (20:54)
[2019-04-18] MEDS: MONTELUKAST 10 MG TABLET PO SCH (20:55)
[2019-04-18] MEDS: OXYBUTYNIN XL 10 MG TABLET PO SCH (20:55)
[2019-04-19 04:31] LABS: Basophils % 0.3 % (0.0-0.8); Eosinophils # 0.5 10*3/uL (0.0-0.87); Hematocrit 40.2 VOL% (35.7-47.0); Immature Granulocytes % 0.4 %; Immature Granulocytes Absolute 0.03 #; Lymphocytes # 0.7 10*3/uL (1.4-4.0); Lymphocytes % 9.8 % (21.3-54.2); Mean Corpuscular HGB Conc 32.3 GM/DL (32-36); Mean Corpuscular Volume 89.3 FL (87-102); Mean Platelet Volume 11.4 FL (9.6-12.0); Monocytes % 9.1 % (1.7-12.7); Neutrophils % 73.4 % (38.7-73.9); Platelet Count 218 T/CUMM (130-400); Red Cell Distribution Width 14.6 % (9.3-17.3); White Blood Count 7.6 T/CUMM (4-12)
[2019-04-19 04:46] LABS: PT Patient Result 64.9 SECS (9.6-12.2)
[2019-04-19 04:48] LABS: INR 6.1
[2019-04-19 05:18] LABS: Calcium 8.9 MG/DL (8.5-10.1); Osmolality,Calculated 286.4 MOS/KG (273-304)
[2019-04-19] MEDS: INSULIN LISPRO 100 UNIT/ML SUBCUT SCH ×4 (08:56→21:24)
[2019-04-19] MEDS: ASPIRIN EC 81 MG TABLET PO SCH (08:57)
[2019-04-19] MEDS: DILTIAZEM CD 180 MG CAPSULE PO SCH ×2 (08:58→21:16)
[2019-04-19] MEDS: GABAPENTIN 100 MG CAPSULE PO SCH ×2 (08:59→21:20)
[2019-04-19] MEDS: METHENAMINE HIPPURATE 1 GM TABLET PO SCH ×2 (08:59→21:16)
[2019-04-19] MEDS: MAGNESIUM CHLORIDE 64 MG TABLET PO SCH ×2 (08:59→21:21)
[2019-04-19] MEDS: PANTOPRAZOLE 40 MG TABLET PO SCH ×2 (08:59→21:24)
[2019-04-19] MEDS: ISOSORBIDE MONONITRATE 30 MG TABLET PO SCH (08:59)
[2019-04-19] MEDS: METOPROLOL SUCCINATE XL 100 MG TABLET PO SCH ×2 (09:00→21:21)
[2019-04-19] MEDS: BUDESONIDE/FORMOTEROL 160-4.5 INHALER 6 GM INH SCH ×2 (09:00→21:26)
[2019-04-19] MEDS: FUROSEMIDE 40 MG/4 ML VIAL IV SCH ×2 (09:04→16:17)
[2019-04-19] MEDS: LEVOFLOXACIN 500 MG TABLET PO SCH (12:36)
[2019-04-19] MEDS: DULoxetine 30 MG CAPSULE PO SCH (21:20)
[2019-04-19] MEDS: MONTELUKAST 10 MG TABLET PO SCH (21:21)
[2019-04-19] MEDS: OXYBUTYNIN XL 10 MG TABLET PO SCH (21:21)
[2019-04-19] MEDS: HydrOXYzine PAMOATE 25 MG CAPSULE PO PRN (23:50)
[2019-04-20 04:11] LABS: Basophils % 0.4 % (0.0-0.8); Eosinophils # 0.4 10*3/uL (0.0-0.87); Eosinophils % 5.4 % (0.00-10.9); Hematocrit 40.2 VOL% (35.7-47.0); Immature Granulocytes % 0.7 %; Immature Granulocytes Absolute 0.05 #; Lymphocytes # 0.8 10*3/uL (1.4-4.0); Mean Corpuscular HGB Conc 32.3 GM/DL (32-36); Mean Corpuscular Volume 89.9 FL (87-102); Mean Platelet Volume 11.6 FL (9.6-12.0); Monocytes % 8.9 % (1.7-12.7); Neutrophils % 73.6 % (38.7-73.9); Platelet Count 213 T/CUMM (130-400); Red Blood Count 4.47 MC/CUMM (3.8-5.5); Red Cell Distribution Width 14.6 % (9.3-17.3); White Blood Count 7.3 T/CUMM (4-12)
[2019-04-20 04:18] LABS: INR 3.6
[2019-04-20 04:22] LABS: PT Patient Result 38.9 SECS (9.6-12.2)
[2019-04-20 04:31] LABS: Calcium 8.8 MG/DL (8.5-10.1); Osmolality,Calculated 289.1 MOS/KG (273-304)
[2019-04-20] MEDS: ONDANSETRON 4 MG/2 ML VIAL IV PRN (08:37)
[2019-04-20] MEDS: INSULIN LISPRO 100 UNIT/ML SUBCUT SCH ×4 (08:39→20:06)
[2019-04-20] MEDS: FUROSEMIDE 80 MG TABLET PO SCH ×2 (09:27→16:28)
[2019-04-20] MEDS: METOPROLOL SUCCINATE XL 100 MG TABLET PO SCH ×2 (09:27→21:49)
[2019-04-20] MEDS: PANTOPRAZOLE 40 MG TABLET PO SCH ×2 (09:27→21:49)
[2019-04-20] MEDS: DILTIAZEM CD 180 MG CAPSULE PO SCH ×2 (09:27→21:48)
[2019-04-20] MEDS: GABAPENTIN 100 MG CAPSULE PO SCH ×2 (09:27→21:49)
[2019-04-20] MEDS: ISOSORBIDE MONONITRATE 30 MG TABLET PO SCH (09:27)
[2019-04-20] MEDS: METHENAMINE HIPPURATE 1 GM TABLET PO SCH (09:27)
[2019-04-20] MEDS: MAGNESIUM CHLORIDE 64 MG TABLET PO SCH ×2 (09:27→21:48)
[2019-04-20] MEDS: ASPIRIN EC 81 MG TABLET PO SCH (09:27)
[2019-04-20] MEDS: BUDESONIDE/FORMOTEROL 160-4.5 INHALER 6 GM INH SCH ×2 (09:28→21:49)
[2019-04-20] MEDS ORDERED: NITROFURANTOIN MACRO/MONO 100 MG CAPSULE PO ONE (12:32)
[2019-04-20] MEDS: ACETAMINOPHEN 325 MG TABLET PO PRN (16:34)
[2019-04-20] MEDS ORDERED: MAGNESIUM SULF RIDER 4 GM in PREMIX 1 EACH IV PRN (17:13)
[2019-04-20] MEDS ORDERED: MAGNESIUM SULF RIDER 2 GM in PREMIX 1 EACH IV PRN (17:13)
[2019-04-20] MEDS ORDERED: WARFARIN 3 MG TABLET PO SCH (18:00)
[2019-04-20] MEDS: MONTELUKAST 10 MG TABLET PO SCH (21:47)
[2019-04-20] MEDS: DULoxetine 30 MG CAPSULE PO SCH (21:47)
[2019-04-20] MEDS: OXYBUTYNIN XL 10 MG TABLET PO SCH (21:48)
[2019-04-20] MEDS: NITROFURANTOIN MACRO/MONO 100 MG CAPSULE PO SCH (22:17)
[2019-04-21 04:35] LABS: Basophils % 0.3 % (0.0-0.8); Eosinophils # 0.8 10*3/uL (0.0-0.87); Eosinophils % 10.4 % (0.00-10.9); Hematocrit 42.4 VOL% (35.7-47.0); Hemoglobin 13.6 GM/DL (12.0-16.0); Immature Granulocytes % 0.5 %; Immature Granulocytes Absolute 0.04 #; Lymphocytes % 13.2 % (21.3-54.2); Mean Corpuscular HGB Conc 32.1 GM/DL (32-36); Mean Corpuscular Volume 90.2 FL (87-102); Mean Platelet Volume 10.9 FL (9.6-12.0); Monocytes % 9.7 % (1.7-12.7); Neutrophils % 65.9 % (38.7-73.9); Platelet Count 247 T/CUMM (130-400); Red Cell Distribution Width 14.7 % (9.3-17.3); White Blood Count 7.4 T/CUMM (4-12)
[2019-04-21 04:57] LABS: INR 2.9
[2019-04-21 05:09] LABS: Calcium 9.6 MG/DL (8.5-10.1); Osmolality,Calculated 279.5 MOS/KG (273-304)
[2019-04-21] MEDS: INSULIN LISPRO 100 UNIT/ML SUBCUT SCH ×2 (09:25→11:52)
[2019-04-21] MEDS: DILTIAZEM CD 180 MG CAPSULE PO SCH (09:26)
[2019-04-21] MEDS: NITROFURANTOIN MACRO/MONO 100 MG CAPSULE PO SCH (09:26)
[2019-04-21] MEDS: ASPIRIN EC 81 MG TABLET PO SCH (09:26)
[2019-04-21] MEDS: ISOSORBIDE MONONITRATE 30 MG TABLET PO SCH (09:27)
[2019-04-21] MEDS: BUDESONIDE/FORMOTEROL 160-4.5 INHALER 6 GM INH SCH (09:27)
[2019-04-21] MEDS: METOPROLOL SUCCINATE XL 100 MG TABLET PO SCH (09:27)
[2019-04-21] MEDS: MAGNESIUM CHLORIDE 64 MG TABLET PO SCH (09:27)
[2019-04-21] MEDS: PANTOPRAZOLE 40 MG TABLET PO SCH (09:27)
[2019-04-21] MEDS: FUROSEMIDE 80 MG TABLET PO SCH (09:27)
[2019-04-21] MEDS: GABAPENTIN 100 MG CAPSULE PO SCH (09:27)
[2019-04-21 10:48] LABS: Apearance,Urine CLOUDY (Clear); Bacteria,Urine Many /HPF (Few); Bilirubin,Urine Negative (Negative); Blood, Urine Moderate mg/dL (Negative); Glucose,Urine (UA) Negative (Negative); Ketones,Urine Negative (Negative); Nitrite,Urine Negative (Negative); Protein,Urine 30 MG/DL; RBC,Urine 81 /HPF (0-4); Squamous Epithelial Cell,Urine Occasional /HPF (0-10); Urine Color Yellow (Yellow); Urine Specific Gravity 1.009 (1.001-1.035); Urine Urobilinogen < 2.0 EU/DL (0.2-1.0); WBC,Urine 1327 /HPF (0-6)
[2019-04-21 12:03] VITALS: BP 100/69
== END 2019-04-21 14:55 | disposition home or self-care (01) | DRG 273 ==
LOC: N.TELES 06:32 → N.CL 06:32 → N.SDSINP 06:57 → N.TELES 13:23
PROVIDERS: ADMIT Internal Medicine Clinical Cardiac Electrophysiology; ATTEND Internal Medicine Clinical Cardiac Electrophysiology

== ENCOUNTER 2019-05-09 06:29 | Inpatient (IN) ==
[~2019-05-09 06:29] MED LIST: ASPIRIN 325 MG TABLET PO ONE; DIAZEPAM 5 MG TABLET PO ONE; MAGNESIUM SULF RIDER 2 GM in PREMIX 1 EACH IV PRN; POTASSIUM CHLORIDE RIDER 10 MEQ in PREMIX 1 EACH IV PRN; diphenhydrAMINE CAP 25 MG CAPSULE PO ONE
[2019-05-09] MEDS ORDERED: HEPARIN/NACL 0.9% 2 UNITS/ML 1,000 ML IV ONE (06:48)
[2019-05-09] MEDS ORDERED: LIDOCAINE 1% 20 ML VIAL ONE (06:48)
[2019-05-09] MEDS ORDERED: ASPIRIN 325 MG TABLET ONE (07:11)
[2019-05-09] MEDS ORDERED: DIAZEPAM 5 MG TABLET ONE (07:12)
[2019-05-09] MEDS ORDERED: diphenhydrAMINE CAP 25 MG CAPSULE ONE (07:12)
[2019-05-09] MEDS: SODIUM CHLORIDE 0.9% 1,000 ML IV SCH ×2 (07:16→16:44)
[2019-05-09] MEDS ORDERED: DEXTROSE 50% 25 GM/50 ML VIAL IV ONE (07:20)
[2019-05-09] MEDS ORDERED: MIDAZOLAM 2 MG/2 ML VIAL ONE ×2 (07:34→07:50)
[2019-05-09] MEDS ORDERED: diphenhydrAMINE 50 MG/1 ML VIAL ONE (07:34)
[2019-05-09] MEDS ORDERED: DEXTROSE 50% 25 GM/50 ML VIAL IV PRN (08:53)
[2019-05-09] MEDS ORDERED: GLUCAGON 1 MG VIAL IM PRN (08:53)
[2019-05-09] MEDS ORDERED: ZALEPLON 5 MG CAPSULE PO PRN (08:53)
[2019-05-09] MEDS ORDERED: ONDANSETRON 4 MG/2 ML VIAL IV PRN (08:53)
[2019-05-09] MEDS ORDERED: HydrOXYzine PAMOATE 25 MG CAPSULE PO PRN (08:55)
[2019-05-09] MEDS ORDERED: diphenhydrAMINE CAP 25 MG CAPSULE PO PRN (08:55)
[2019-05-09] MEDS ORDERED: ALBUTEROL 2.5 MG/3 ML NEB RESP TX PRN (08:55)
[2019-05-09] MEDS ORDERED: INFLUENZA VIRUS VACCINE 0.5 ML SYRINGE IM ONE (09:50)
[2019-05-09] MEDS: ASPIRIN EC 81 MG TABLET PO SCH (10:07)
[2019-05-09] MEDS: DILTIAZEM CD 180 MG CAPSULE PO SCH ×2 (10:09→23:16)
[2019-05-09] MEDS: MAGNESIUM CHLORIDE 64 MG TABLET PO SCH ×2 (10:10→22:10)
[2019-05-09] MEDS: CELECOXIB 200 MG CAPSULE PO SCH (10:10)
[2019-05-09] MEDS: ROSUVASTATIN 20 MG TABLET PO SCH (10:10)
[2019-05-09] MEDS: GABAPENTIN 100 MG CAPSULE PO SCH ×2 (10:10→22:10)
[2019-05-09] MEDS: ISOSORBIDE MONONITRATE 30 MG TABLET PO SCH (10:11)
[2019-05-09] MEDS: DIGOXIN 0.25 MG TABLET PO SCH (10:11)
[2019-05-09] MEDS: METOPROLOL SUCCINATE XL 50 MG TABLET PO SCH ×2 (10:11→23:16)
[2019-05-09] MEDS: PANTOPRAZOLE 40 MG TABLET PO SCH ×2 (10:11→22:10)
[2019-05-09] MEDS: METHENAMINE HIPPURATE 1 GM TABLET PO SCH ×2 (10:12→22:10)
[2019-05-09] MEDS ORDERED: INSULIN ASPART SUBCUT SCH (11:30)
[2019-05-09] MEDS: BUDESONIDE/FORMOTEROL 160-4.5 INHALER 6 GM INH SCH ×2 (11:56→23:17)
[2019-05-09] MEDS: FUROSEMIDE 80 MG TABLET PO SCH (15:18)
[2019-05-09] MEDS: INSULIN LISPRO 100 UNIT/ML SUBCUT SCH ×2 (16:43→22:18)
[2019-05-09] MEDS: DULoxetine 30 MG CAPSULE PO SCH (18:07)
[2019-05-09] MEDS ORDERED: INSULIN LISPRO 100 UNIT/ML SUBCUT ONE (18:24)
[2019-05-09] MEDS ORDERED: ACETAMINOPHEN 325 MG TABLET PO PRN (20:02)
[2019-05-09] MEDS ORDERED: NALOXONE 0.4 MG/ML VIAL IV ONE (22:03)
[2019-05-09] MEDS: MONTELUKAST 10 MG TABLET PO SCH (22:10)
[2019-05-09] MEDS: OXYBUTYNIN XL 10 MG TABLET PO SCH (22:10)
[2019-05-09 22:57] LABS: ABG Base Excess 4.5 MMOL/L (-2.5-2.5); ABG HCO3 28.3 MMOL/L (20-26); ABG Oxygen Saturation 92.2 % (95-100); ABG PCO2 42.1 MM HG (35-48); ABG PH 7.446 (7.35-7.45); ABG PO2 59.6 MM HG (80-95); ABG TCO2 25.2 MMOL/L (23-27); Allen Test Positive; Pt O2 Delivery Device Room Air
[2019-05-09 23:10] LABS: Basophils % 0.5 % (0.0-0.8); Eosinophils # 0.6 10*3/uL (0.0-0.87); Eosinophils % 7.7 % (0.00-10.9); Hematocrit 39.7 VOL% (35.7-47.0); Immature Granulocytes % 0.5 %; Immature Granulocytes Absolute 0.04 #; Lymphocytes # 0.9 10*3/uL (1.4-4.0); Mean Corpuscular HGB Conc 32.7 GM/DL (32-36); Mean Corpuscular Volume 90.2 FL (87-102); Mean Platelet Volume 11.7 FL (9.6-12.0); Neutrophils % 70.3 % (38.7-73.9); Platelet Count 197 T/CUMM (130-400); White Blood Count 7.7 T/CUMM (4-12)
[2019-05-09 23:22] LABS: Calcium 9.3 MG/DL (8.5-10.1); Osmolality,Calculated 291.7 MOS/KG (273-304)
[2019-05-10 02:18] LABS: Apearance,Urine Slightly Hazy (Clear); Bacteria,Urine Occasional /HPF (Few); Bilirubin,Urine Negative (Negative); Blood, Urine Small mg/dL (Negative); Glucose,Urine (UA) >=500 mg/dL (Negative); Ketones,Urine Negative (Negative); Mucus,Urine Occasional /LPF (Occasional); Nitrite,Urine Positive (Negative); Protein,Urine Negative; RBC,Urine 2 /HPF (0-4); Renal Epithelial Cells,Urine Occasional /HPF (<1); Squamous Epithelial Cell,Urine Occasional /HPF (0-10); Urine Color Yellow (Yellow); Urine Urobilinogen < 2.0 EU/DL (0.2-1.0); WBC,Urine 55 /HPF (0-6)
[2019-05-10] MEDS: SODIUM CHLORIDE 0.9% 1,000 ML IV SCH ×2 (02:36→13:08)
[2019-05-10 05:07] LABS: Calcium 8.5 MG/DL (8.5-10.1); Osmolality,Calculated 289.5 MOS/KG (273-304)
[2019-05-10] MEDS: INSULIN LISPRO 100 UNIT/ML SUBCUT SCH ×5 (05:17→21:36)
[2019-05-10] MEDS: GABAPENTIN 100 MG CAPSULE PO SCH ×2 (09:27→21:35)
[2019-05-10] MEDS: METHENAMINE HIPPURATE 1 GM TABLET PO SCH ×2 (09:27→21:35)
[2019-05-10] MEDS: ASPIRIN EC 81 MG TABLET PO SCH (09:28)
[2019-05-10] MEDS: DIGOXIN 0.25 MG TABLET PO SCH (09:28)
[2019-05-10] MEDS: MAGNESIUM CHLORIDE 64 MG TABLET PO SCH ×2 (09:28→21:36)
[2019-05-10] MEDS: DILTIAZEM CD 180 MG CAPSULE PO SCH (09:28)
[2019-05-10] MEDS: ISOSORBIDE MONONITRATE 30 MG TABLET PO SCH (09:28)
[2019-05-10] MEDS: PANTOPRAZOLE 40 MG TABLET PO SCH ×2 (09:29→21:36)
[2019-05-10] MEDS: METOPROLOL SUCCINATE XL 50 MG TABLET PO SCH ×2 (09:29→21:35)
[2019-05-10] MEDS: CELECOXIB 200 MG CAPSULE PO SCH (09:29)
[2019-05-10] MEDS: ROSUVASTATIN 20 MG TABLET PO SCH (09:29)
[2019-05-10] MEDS: FUROSEMIDE 80 MG TABLET PO SCH ×2 (09:29→17:19)
[2019-05-10] MEDS: BUDESONIDE/FORMOTEROL 160-4.5 INHALER 6 GM INH SCH ×2 (11:09→21:45)
[2019-05-10] MEDS: CIPROFLOXACIN INJ 400 MG in PREMIX 1 EACH IV SCH ×2 (11:10→21:41)
[2019-05-10 14:40] LABS: Folate 6.5 NG/ML (5.4-24.0)
[2019-05-10] MEDS ORDERED: INSULIN GLARGINE 100 UNIT/ML SUBCUT SCH (21:00)
[2019-05-10] MEDS: MONTELUKAST 10 MG TABLET PO SCH (21:36)
[2019-05-10] MEDS: OXYBUTYNIN XL 10 MG TABLET PO SCH (21:36)
[2019-05-10] MEDS: DULoxetine 30 MG CAPSULE PO SCH (21:38)
[2019-05-11] MEDS: DILTIAZEM CD 180 MG CAPSULE PO SCH ×2 (00:59→18:04)
[2019-05-11] MEDS: SODIUM CHLORIDE 0.9% 1,000 ML IV SCH ×2 (01:11→10:01)
[2019-05-11 05:14] LABS: Basophils % 0.3 % (0.0-0.8); Eosinophils # 1.3 10*3/uL (0.0-0.87); Hemoglobin 12.8 GM/DL (12.0-16.0); Immature Granulocytes % 0.3 %; Immature Granulocytes Absolute 0.03 #; Lymphocytes # 0.5 10*3/uL (1.4-4.0); Lymphocytes % 6.1 % (21.3-54.2); Mean Corpuscular Volume 91.1 FL (87-102); Mean Platelet Volume 12.3 FL (9.6-12.0); Monocytes % 8.2 % (1.7-12.7); Neutrophils % 70.1 % (38.7-73.9); Platelet Count 177 T/CUMM (130-400); Red Blood Count 4.39 MC/CUMM (3.8-5.5); White Blood Count 8.6 T/CUMM (4-12)
[2019-05-11 05:31] LABS: INR 1.8; PT Patient Result 19.4 SECS (9.6-12.2)
[2019-05-11 05:41] LABS: Band Neutrophils 5 % (0-10); Eosinophils 19 % (0-10); Lymphocytes 3 % (20-55); Segmented Neutrophils 65 % (50-85); Total Cells Counted 100
[2019-05-11 05:42] LABS: Calcium 8.6 MG/DL (8.5-10.1); Osmolality,Calculated 289.4 MOS/KG (273-304); Platelet Estimate Normal
[2019-05-11] MEDS: INSULIN LISPRO 100 UNIT/ML SUBCUT SCH ×3 (10:02→18:08)
[2019-05-11] MEDS: CIPROFLOXACIN INJ 400 MG in PREMIX 1 EACH IV SCH (10:06)
[2019-05-11] MEDS ORDERED: INSULIN GLARGINE 100 UNIT/ML SUBCUT SCH (10:44)
[2019-05-11] MEDS ORDERED: INSULIN REGULAR 100 UNIT/ML ONE (12:16)
[2019-05-11] MEDS ORDERED: INSULIN REGULAR 100 UNIT/ML SUBCUT ONE (12:19)
[2019-05-11] MEDS ORDERED: GLUCAGON 1 MG VIAL IM PRN (13:21)
[2019-05-11] MEDS ORDERED: DEXTROSE 50% 25 GM/50 ML VIAL IV PRN (13:21)
[2019-05-11 16:56] VITALS: BP 127/57
[2019-05-11] MEDS: ASPIRIN EC 81 MG TABLET PO SCH (18:04)
[2019-05-11] MEDS: FUROSEMIDE 80 MG TABLET PO SCH ×2 (18:04→18:34)
[2019-05-11] MEDS: CELECOXIB 200 MG CAPSULE PO SCH (18:05)
[2019-05-11] MEDS: ROSUVASTATIN 20 MG TABLET PO SCH (18:05)
[2019-05-11] MEDS: METHENAMINE HIPPURATE 1 GM TABLET PO SCH (18:07)
[2019-05-11] MEDS: DIGOXIN 0.25 MG TABLET PO SCH (18:07)
[2019-05-11] MEDS: ISOSORBIDE MONONITRATE 30 MG TABLET PO SCH (18:07)
[2019-05-11] MEDS: BUDESONIDE/FORMOTEROL 160-4.5 INHALER 6 GM INH SCH (18:08)
[2019-05-11] MEDS: METOPROLOL SUCCINATE XL 50 MG TABLET PO SCH (18:08)
[2019-05-11] MEDS: GABAPENTIN 100 MG CAPSULE PO SCH (18:08)
[2019-05-11] MEDS: MAGNESIUM CHLORIDE 64 MG TABLET PO SCH (18:08)
[2019-05-11] MEDS: PANTOPRAZOLE 40 MG TABLET PO SCH (18:08)
== END 2019-05-11 18:34 | disposition hospice, home (50) | DRG 287 ==
LOC: N.CL 06:29 → N.TELES 09:04
PROVIDERS: ADMIT Internal Medicine Cardiovascular Disease; ATTEND Internal Medicine Cardiovascular Disease